=== PATIENT | male | born 1955 | race Caucasian/White ===

== ENCOUNTER → 2018-02-01 08:09 | Outpatient (CLI) | payer OTHER, SELFPAY ==
[2018-02-01 12:18] LABS: Anion Gap 8 (5-15); BUN 14 mg/dL (7-18); BUN/Creat Ratio 13.7 RATIO (10-20); Calcium,Total 8.3 mg/dL (8.5-10.1); Chloride 110 mmol/L (98-107); Cholesterol 178 mg/dL (200); Creatinine, Serum 1.02 mg/dL (0.70-1.30); EST Glomerular Filtration Rate 78 mL/min (>60); Est Glom Filt Rate - Afr Amer 95 mL/min (>60); Glucose 94 mg/dL (74-106); High Density Lipoprotein 42 mg/dL; PSA,Total - Annual Screen 2.13 ng/mL (0.00-4.00); Potassium 4.3 mmol/L (3.5-5.1); Sodium Level 142 mmol/L (136-145); Triglycerides 81 mg/dL; Very Low Density Lipoprotein 16 mg/dL (5-40)
== END ==
PROVIDERS: Family Provider Family Medicine; PCP Family Medicine; Visit Provider Family Medicine
DX: Z00.00 Encounter for general adult medical examination without abnormal findings (principal); M79.89 Other specified soft tissue disorders; Z13.220 Encounter for screening for lipoid disorders; Z12.5 Encounter for screening for malignant neoplasm of prostate
CPT/HCPCS: 36415; 80048; 80061; 84153; G0103

== ENCOUNTER → 2019-05-30 | Outpatient (CLI) | payer OTHER, SELFPAY ==
--- NOTE | 2019-05-30 08:46 | CDU_ITS ---
Reason For Study: carotid stenosis Rt. Velocities/BP Lt. Velocities/BP Prox CCA 69.0/9.0 cm/sec. Prox CCA 95.3/21.6 cm/sec. Mid CCA 58.1/12.0 cm/sec. Mid CCA 84.3/17.9 cm/sec. Dist CCA 53.7/15.3 cm/sec. Dist CCA 59.2/13.1 cm/sec. Prox ICA 58.1/174.5 cm/sec. Prox ICA 47.1/15.3 cm/sec. Mid ICA 57.0/19.7 cm/sec. Mid ICA 65.8/25.2 cm/sec. Dist ICA 71.3/19.7 cm/sec. Dist ICA 69.1/24.1 cm/sec. Rt. ICA/CCA = 71.3/69.0=1.0. Lt. ICA/CCA = 69.1/84.3=0.8. Prox ECA 76.8/7.6 cm/sec. Prox ECA 76.8/10.9 cm/sec. Rt. Vert. 64.7/14.2 cm/sec. Lt. Vert. 39.3/13.7 cm/sec. Right Extracranial There is no significant atherosclerotic plaque noted in the right common carotid artery. There is homogeneous, smooth atherosclerotic plaque noted in the right internal carotid artery. There is intimal thickening but no significant atherosclerotic plaque noted in the right external carotid artery. Antegrade flow is noted in the right vertebral artery. There is heterogeneous, smooth atherosclerotic plaque noted in the right bulb. Left Extracranial There is heterogeneous, irregular atherosclerotic plaque noted in the left common carotid artery. There is homogeneous, smooth atherosclerotic plaque noted in the left internal carotid artery. There is homogeneous, smooth atherosclerotic plaque noted in the left external carotid artery. Antegrade flow is noted in the left vertebral artery. There is heterogeneous, smooth atherosclerotic plaque noted in the left bulb. Procedure Carotid Duplex [id number]. The exam was diagnostic. Exam performed in department. Interpretation Summary Mild (<50%) stenosis right extracranial internal carotid. Mild (<50%) stenosis left extracranial internal carotid. Flow within the vertebral arteries is antegrade bilaterally. Heterogeneous, smooth atherosclerotic plaque is noted in the carotid bulbs bilaterally, which does not appear to be hemodynamically significant. Ordering Physician: Reza Nieto Referring Physician: Reza Nieto Performed By: Chloe Denton RDCS, RVT
== END | disposition home or self-care (01) ==
LOC: CVS 08:43
PROVIDERS: Family Provider Family Medicine; PCP Family Medicine; Referring Provider Family Medicine; Visit Provider Family Medicine
DX: I65.29 Occlusion and stenosis of unspecified carotid artery (principal)
CPT/HCPCS: 93880

== ENCOUNTER → 2019-06-05 | Outpatient (CLI) | payer OTHER, SELFPAY ==
[2019-06-05 12:42] VITALS: BMI 34.0
--- NOTE | 2019-06-05 13:08 | CT_ITS ---
STUDY: LOW DOSE CT LUNG CANCER SCREENING REASON FOR EXAM: Male, 64 years old. 30 pack-year history of smoking. RADIATION DOSAGE (If Supplied By Facility): CTDIvol = ( 4.02 ) mGy, DLP = ( 139.44 ) mGycm TECHNIQUE: No contrast was administered. Low dose technique was utilized (average mAS-38 and kVp 120). 1.25 mm axial source images with a slice interval of 1.25-mm were reconstructed in lung windows. 2.5 mm axial source images with a slice interval of 2.5-mm were reconstructed in lung windows. 5.0 mm axial source images with a slice interval of 5.0-mm were reconstructed in soft tissue windows. Nodule measured using lung windows on PACS and/or independent workstation with automated measurement of minimum and maximum diameter. Nodule measurement reported as average diameter rounded to the nearest whole number. Growth is defined as an increase ins size of greater than 1.5 mm. COMPARISON: None. NODULES: There is a 1.1 cm calcified granuloma in the anterior lateral aspect of the right middle lobe. A 3 mm calcified granuloma is also seen in the posterior medial aspect of the right middle lobe. A 2.5 mm calcified granuloma is also seen in the posterior segment of the right lower Emphysema: Mild scarring at the lung apices. Mild scarring in the posterior medial segments of both lower lobes with minimal subpleural blebs. Endobronchial lesion: None. Aorta: Atherosclerotic calcific plaque at the level of the aortic arch. Coronary arteries: Coronary artery calcification. Heart: Unremarkable. Pulmonary artery: Unremarkable. Mediastinal nodes: Small benign-appearing mediastinal lymph nodes. Other chest and abdominal findings: CT/Low Dose CT Lung Screening IMPRESSION: Lung-RADS category 2 - Continue annual screening with LDCT in 12 months. IMPORTANT NOTES FOR USE: ACR Lung-RADS Version 1.0 Assessment Categories Release Date: December 31, 2013 Category: Coded 0-4 bases on nodule(s) with highest degree of suspicion. Negative screen is defined as categories 1 and 2; a positive screen is defined as categories 3 and 4. Category 3 and 4A nodules that are unchanged on interval CT should be coded as category 2, and individuals returned to screening in 12 months. Category 4X: Category 3 or 4 nodules with additional imaging findings that increase the suspicion of lung cancer, such as spiculation, GGN that doubles in size in 1 year, enlarged lymph notes, etc. Category Modifiers: S (significant finding unrelated to lung cancer) and C (prior history of treated lung cancer) may be added to the 0-4 Lung-RADS 1.1 cm calcified granuloma in the anterior lateral aspect of the right middle lobe. A 3 mm calcified granuloma is also seen in the posterior medial aspect of the right middle lobe. A 2.5 mm calcified granuloma is also seen in the posterior segment of the right lower Electronically Signed: Trent Webster, at 14:04 EDT , Service support ,
== END | disposition home or self-care (01) ==
LOC: CT 13:07
PROVIDERS: Family Provider Family Medicine; PCP Family Medicine; Referring Provider Nurse Practitioner Family; Visit Provider Nurse Practitioner Family
DX: Z87.891 Personal history of nicotine dependence (principal); Z12.2 Encounter for screening for malignant neoplasm of respiratory organs
CPT/HCPCS: G0297

== ENCOUNTER → 2020-04-24 12:47 | Outpatient (CLI) | payer MEDICARE, BC, SELFPAY ==
[2019-06-05 12:42] VITALS: BMI 34.0
--- NOTE | 2020-04-24 12:54 | VDLE_ITS ---
Reason For Study: Increased swelling RIGHT LEFT CFV is compressible, spontaneous, phasic, CFV is compressible, spontaneous, phasic, competent and demonstrates normal competent, and demonstrates normal augmentation. augmentation. Procedure FV is compressible, spontaneous, phasic, Exam performed in department. competent and demonstrates normal A preliminary report was called and/or faxed augmentation. to [facility]. POP V is compressible, spontaneous, phasic, competent and demonstrates normal augmentation. T/P Trunk is compressible. PTV is compressible. LT PerV is compressible. Superficial vein thrombosis is noted in the left GSV from distal thigh to ankle. Thrombus filled varicose veins noted in the prox-mid calf. Nonvascularized structure noted in the left popliteal fossa measuring approximently 2.89 x 2.17 x 5.50 cm. Interpretation Summary Deep veins of the left lower extremity are patent and compressible segmentally. There is no evidence of left lower extremity deep vein thrombosis. Valvular competence appears intact within the proximal deep venous system on the left . Acute superficial thrombophlebitis is noted in the left great saphenous vein from the distal thigh to the ankle. Acute superficial thrombophlebitis is noted involving superficial varicosities in the left proximal and mid-calf. A non-vascular, hypoechoic structure is noted in the left popliteal space, measuring 2.89 cm x 2.17 cm x 5.50 cm. This probably represents a popliteal cyst. Clinical correlation is advised. Ordering Physician: Luci Maza Referring Physician: Reza Nieto Performed By: Olinda Vazquez RVT
== END ==
PROVIDERS: PCP Family Medicine; Referring Provider Family Medicine; Visit Provider Family Medicine
DX: M79.89 Other specified soft tissue disorders (principal); Q82.0 Hereditary lymphedema
CPT/HCPCS: 93971

== ENCOUNTER → 2020-07-01 15:00 | Outpatient (CLI) | payer MEDICARE, BC, SELFPAY ==
[2019-06-05 12:42] VITALS: BMI 34.0
--- NOTE | 2020-07-01 15:00 | CT_ITS ---
STUDY: CT CHEST WITHOUT CONTRAST- LOW DOSE SCREENING PROTOCOL REASON FOR EXAM: Male, 65 years old. Former smoker. 30 pack per year history. No current symptoms of lung cancer or pulmonary infection. Shared decision-making with referring PCP documented in patient''s record. RADIATION DOSAGE (If Supplied By Facility): CTDIvol = ( 3.40 ) mGy, DLP = ( 118.68 ) mGycm TECHNIQUE: Low dose screening CT examination performed from the base of the neck to the upper abdomen. Sagittal and coronal reformatted images performed. Sagittal and coronal MIP images provided. The measurements provided are average, rounded measurements per ACR guidelines. COMPARISON: 06/05/2019 FINDINGS: Mild emphysematous changes. No change in the 6 mm noncalcified nodule in the posterior medial right upper lobe the lungs on image 84 and follow-up CT the chest is recommended in 6 months not mentioned stability. There is also no change in the 4 mm noncalcified nodule in the anterior right middle lobe the lungs on image 142 consistent with a noncalcified granuloma or scar. There is no demonstrated pleural abnormality. Normal heart and pericardium. There are calcifications of the coronary arteries. Normal mediastinum. Normal hilar regions. Normal unenhanced pulmonary arteries. Normal aorta arch and descending thoracic aorta. Normal osseous structures. There is no demonstrated abnormality of the visualized upper abdomen. CT/Low Dose CT Lung Screening IMPRESSION: 1. 6 mm noncalcified right upper lobe nodule and follow-up CT is recommended in 6 months document stability.. 2. Incidental findings include mild emphysema and calcified coronary plaque.. ASSESSMENT CATEGORY: LungRADS 3 - Probably Benign. Recommend follow up with LDCT in 6 months, per established ACR guidelines. Electronically Signed: Kehinde Hess MD at 15:37 EDT Tel , Service support ,
== END ==
PROVIDERS: PCP Family Medicine; Referring Provider Nurse Practitioner Family; Visit Provider Nurse Practitioner Family
DX: Z12.2 Encounter for screening for malignant neoplasm of respiratory organs (principal); Z87.891 Personal history of nicotine dependence
CPT/HCPCS: G0297

== ENCOUNTER → 2021-01-13 14:02 | Outpatient (CLI) | payer MEDICARE, BC, SELFPAY ==
[2019-06-05 12:42] VITALS: BMI 34.0
[2021-01-13 13:43] VITALS: BMI 35.2
--- NOTE | 2021-01-13 14:04 | CT_ITS ---
STUDY: CT CHEST WITHOUT CONTRAST REASON FOR EXAM: Male, 65 years old. Lung nodule -- Lung cancer screening, LungRADS category 3 RADIATION DOSAGE (If Supplied By Facility): CTDIvol = ( 3.02 ) mGy, DLP = ( 113.62 ) mGycm TECHNIQUE: Transaxial imaging was performed without the administration of intravenous contrast material. Multiplanar coronal and sagittal images were reformatted. Individualized dose optimization techniques were used for this CT. COMPARISON: Comparison is made with prior study dated 07/01/2020. FINDINGS: Mild degree of emphysematous changes. Stable 1 cm calcified granuloma in the anterior lateral aspect of the right middle lobe. Stable 5 mm noncalcified nodule in the posterior medial segment of the right upper lobe as seen on axial image #95. There is no demonstrated pleural abnormality. There are calcifications of the coronary arteries. Normal mediastinum. Normal hilar regions. Normal unenhanced pulmonary arteries. Normal aorta arch and descending thoracic aorta. There are degenerative changes of the thoracic spine. There is no demonstrated abnormality of the visualized upper abdomen. CT/Chest without Contrast IMPRESSION: Stable examination. Electronically Signed: Trent Webster MD at 15:25 EDT , Service support ,
== END ==
PROVIDERS: PCP Family Medicine; Referring Provider Nurse Practitioner Family; Visit Provider Nurse Practitioner Family
DX: R91.1 Solitary pulmonary nodule (principal)
CPT/HCPCS: 71250

== ENCOUNTER → 2021-06-22 06:43 | Outpatient (CLI) | payer MEDICARE, BC, SELFPAY ==
--- NOTE | 2021-06-22 06:48 | ECHOD_ITS ---
Reason For Study: Chest Pain Procedure This was a 2D Doppler, Color Flow transthoracic echocardiogram. Exam performed in department. Left Ventricle Normal LV size. Mild concentric left ventricular hypertrophy. Left ventricular systolic function is normal. The estimated ejection fraction is 60 %. Stage 1 diastolic dysfunction. No regional wall motion abnormalities noted. Right Ventricle Normal RV size. Normal systolic function. Atria Normal left atrium. Normal right atrium. Mitral Valve Normal mitral valve. Tricuspid Valve Normal tricuspid valve. Mild tricuspid valve insufficiency. Pulmonary artery systolic pressure is 30 mmHg. Aortic Valve Normal aortic valve. Trisinus/trileaflet aortic valve. Pulmonic Valve Normal pulmonic valve. Great Vessels Normal aortic root. The pulmonary artery is normal size. Normal inferior vena cava. Pericardium/Pleural No pericardial effusion. MMode/2D Measurements & Calculations LVIDd: 4.9 cm IVSd: 1.3 cm Ao root diam: 2.6 cm LVIDs: 3.6 cm LVPWd: 1.3 cm RVDd: 4.0 cm FS: 27.3 % LAV(MOD-bp): 51.0 ml LVAd ap4: 33.3 cm2 SV(MOD-sp4): 53.1 ml LAV(MOD-bp) Indexed: 24.0 ml/m2 LVLd ap4: 9.4 cm LAV(MOD-sp2): 63.7 ml EDV(MOD-sp4): 97.2 ml LAV(MOD-sp4): 33.2 ml EDV(sp4-el): 100.1 ml LVAs ap4: 21.0 cm2 LVLs ap4: 8.4 cm ESV(MOD-sp4): 44.2 ml ESV(sp4-el): 44.6 ml EF(MOD-sp4): 54.6 % EF(sp4-el): 55.5 % SV(sp4-el): 55.5 ml LA A4 area: 13.2 cm2 LA dimension(2D): 4.4 cm RA A4 area: 14.1 cm2 Doppler Measurements & Calculations MV E max chad: 59.2 cm/sec Lat Peak E' Chad: 7.7 cm/sec Med Peak E' Chad: 6.3 cm/sec MV A max chad: 84.7 cm/sec E/E' lat: 7.7 E/E' med: 9.5 MV E/A: 0.70 Ao V2 max: 113.9 cm/sec LV V1 max: 83.2 cm/sec PA V2 max: 121.3 cm/sec Ao max P.2 mmHg LV V1 max P.8 mmHg Ao V2 mean: 77.3 cm/sec Ao mean P.7 mmHg Ao V2 VTI: 27.1 cm PI end-d chad: 95.3 cm/sec TR max chad: 256.7 cm/sec TR max P.4 mmHg ECHO/Echo Complete Interpretation Summary Normal LV size. Left ventricular systolic function is normal. The estimated ejection fraction is 60 %. Mild concentric left ventricular hypertrophy. Pulmonary artery systolic pressure is 30 mmHg. Stage 1 diastolic dysfunction. Ordering Physician: Luci Maza Referring Physician: Reza Nieto Performed By: Ruth Fish, JOSAFAT, RVT
--- NOTE | 2021-06-22 11:31 | STRESSREP ---
Stress Test Report Exercise and pharmacologic myocardial perfusion stress test. Reason for evaluation evaluation of chest pain and shortness of breath. Stress protocol: Resting EKG demonstrates sinus bradycardia with a rate of 55 bpm T wave inversions are noted inferior laterally. Resting blood pressure is 150/78 mmHg. The patient initially exercised according to the regular Bernardo protocol for total duration of 4 minutes and 20 seconds. The maximum heart rate attained was 150 bpm which was 97% of max infected heart rate the maximum workload was 7 metabolic equivalents. The patient developed a rate dependent bundle branch block with EKG changes noted. Patient also developed mild shortness of breath and moderately severe shortness of breath necessitating discontinuation of the test. The peak blood pressure was 200/70 mmHg suggesting a hypertensive response to exercise. No obvious clinical angina was noted. Myocardial perfusion protocol. 14.5 mCi of technetium 99m sestamibi was injected at rest. The patient exercised according to regular Bernardo protocol and at peak exercise 44.1 mCi of technetium 99m sestamibi was injected. Stress images were obtained stress and rest images were reconstructed and compared in the short axis vertical long and horizontal long axis. Gated images were also obtained. Perfusion SPECT analysis: Review of the stress images demonstrate normal uptake of tracer noted in the septum anterior wall and lateral wall. The stress images demonstrate mildly reduced perfusion noted in the mid inferior wall. The resting images demonstrate mild improvement in the mid inferior wall with normal perfusion noted in the other [place]. Mild amount of inferior ischemia cannot be completely excluded diaphragmatic attenuation can also not be completely excluded. Gated SPECT analysis: The gated ejection fraction is 46%. Conclusion: Exercise myocardial perfusion stress test with possible mild inferior ischemia. Mild cardiomyopathy present. Rate dependent bundle branch block present.
== END ==
PROVIDERS: PCP Family Medicine; Referring Provider Family Medicine; Visit Provider Family Medicine
DX: R07.9 Chest pain, unspecified (principal)
CPT/HCPCS: 78452; 93017; 93306; A9500; A4216; J2785

== ENCOUNTER 2021-10-13 13:42 | Outpatient (CLI) | payer MEDICARE, BC, SELFPAY ==
--- NOTE | 2021-10-13 13:44 | CT_ITS ---
STUDY: LOW DOSE CT LUNG CANCER SCREENING REASON FOR EXAM: Male, 66 years old. Lung cancer screening -- and gt;30 pk yr hx;former smoker;asymptomatic RADIATION DOSAGE (If Supplied By Facility): CTDIvol = ( 3.18 ) mGy, DLP = ( 114.77 ) mGycm TECHNIQUE: No contrast was administered. Low dose technique was utilized (average mAS-38 and kVp 120). 1.25 mm axial source images with a slice interval of 1.25-mm were reconstructed in lung windows. 2.5 mm axial source images with a slice interval of 2.5-mm were reconstructed in lung windows. 5.0 mm axial source images with a slice interval of 5.0-mm were reconstructed in soft tissue windows. Nodule measured using lung windows on PACS and/or independent workstation with automated measurement of minimum and maximum diameter. Nodule measurement reported as average diameter rounded to the nearest whole number. Growth is defined as an increase ins size of greater than 1.5 mm. COMPARISON: Comparison is made with prior examination of 01/13/2021. NODULES: Stable 9 mm calcified granuloma in the anterior lateral aspect of the right upper lobe. Stable 5 mm noncalcified nodule in the posterior medial segment of the right upper lobe as seen on axial image #91. Emphysema: Stable scarring along the posterior medial aspect of the right lower lobe. Endobronchial lesion: None Aorta: Mild degree of atherosclerotic calcification. Coronary arteries: Coronary artery calcification. Heart: Unremarkable Pulmonary artery: Unremarkable Mediastinal nodes: Unremarkable Other chest and abdominal findings: CT/Low Dose CT Lung Screening IMPRESSION: Lung-RADS category 2 - Continue annual screening with LDCT in 12 months. IMPORTANT NOTES FOR USE: ACR Lung-RADS Version 1.1 Assessment Categories Release Date: 2018 Category: Coded 0-4 bases on nodule(s) with highest degree of suspicion. Negative screen is defined as categories 1 and 2; a positive screen is defined as categories 3 and 4. Category 3 and 4A nodules that are unchanged on interval CT should be coded as category 2, and individuals returned to screening in 12 months. Category 4X: Category 3 or 4 nodules with additional imaging findings that increase the suspicion of lung cancer, such as spiculation, GGN that doubles in size in 1 year, enlarged lymph notes, etc. Category Modifiers: S (significant finding unrelated to lung cancer) Electronically Signed: Trent Webster MD at 14:35 EST ,
== END 2021-10-13 23:59 | disposition home or self-care (01) ==
PROVIDERS: PCP Family Medicine; Referring Provider Nurse Practitioner Family; Visit Provider Nurse Practitioner Family
DX: Z87.891 Personal history of nicotine dependence (principal); Z08 Encounter for follow-up examination after completed treatment for malignant neoplasm; Z85.118 Personal history of other malignant neoplasm of bronchus and lung
CPT/HCPCS: 71271

== ENCOUNTER → 2022-02-26 | Outpatient (CLI) | payer MEDICARE, BC, SELFPAY ==
--- NOTE | 2022-02-26 13:10 | CR.HP_ITS ---
CR - History & Physical - General Arrival date:: 02/26/22 Arrival time:: 13:10 Date of Referral:: 02/15/22 Date of CR Evaluation:: 02/26/22 Referring Physician: Dr. Jennings Primary Diagnosis: CABG - History of Present Cardiac Event Onset Date: Enter Onset Date of cardiac illnesses in Comment field below Coronary Artery Bypass Graft:: Yes - 12/07/2021 - Sleep Disorder Evaluation Hx of Sleep Apnea: No Do you snore loudly (louder than talking or can be heard through closed doors)?: No Do you often feel tired/ fatigued/ sleepy during daytime?: No Has anyone observed you stop breathing during sleep?: No History of Hypertension (for STOP score): Yes STOP Results: Negative - Medications Home Medications: Ambulatory Orders Medication Instructions Recorded aspirin 81 mg tablet,delayed 81 mg PO DAILY 10/13/21 release (Adult Aspirin Regimen) atorvastatin 20 mg tablet 20 mg PO QHS 10/13/21 carvedilol 3.125 mg tablet 3.125 mg PO BID 10/13/21 isosorbide mononitrate 30 mg 30 mg PO DAILY 10/13/21 tablet,extended release 24 hr nitroglycerin 0.4 mg sublingual 0.4 mg sublingual Q5M PRN 10/13/21 tablet - Allergies Allergies/Adverse Reactions: Allergies No Known Allergies Allergy (Verified 10/13/21 13:12) Advanced Directives - Advanced Directives Power of Maintenance Of Way Superintendent: Yes Living Will: Yes Advance Directives Information Provided: Yes Advance Directives on File: Yes DNR Order?:: No Past Medical History - Covid-19 Screening Fever: No Unexplained muscle aches: No Current respiratory symptoms: No Upper respiratory infections symptoms: No Gastro-intestinal symptoms: No Srp-Ibjw-Erxtnx symptoms: No Has tested positive for COVID-19 in last 30 days: No Had contact w/person w/symptoms or Covid-19 (+) last 14 days: No Has High Risk Exposures ID'd by Health dept/Inf Control team: No 65 years or older:: Yes Lives in Assisted Living facility:: No Has a chronic lung disease or moderate to severe asthma:: No Has a serious heart condition:: Yes Immunocompromised:: No Severely obese (Body Mass Index of 40 or higher):: No Diabetic:: No Has chronic kidney disease undergoing dialysis:: No Has liver disease:: No - Past Medical Illness Medical History: Past Medical History (Last Updated 10/13/21 @ 13:17 by Gay Miller) Actinic keratosis L57.0 Basal cell carcinoma (BCC) of left forehead C44.319 Bursitis M71.9 Carotid stenosis, left I65.22 Encounter for follow-up surveillance of lung cancer Z08, Z85.118 Foot swelling M79.89 Former smoker Z87.891 History of tobacco use Z87.891 Nodule of right lung R91.1 Shortness of breath R06.02 referred to corrosion engineer 06/2021 - Past Surgical History Surgical History: Past Surgical History (Last Reviewed 10/13/21 @ 13:17 by Gay Miller) History of basal cell carcinoma excision Z98.890, Z85.828 L forehead - Family History Summary Family History: Family History (Last Reviewed 10/13/21 @ 13:17 by Gay Miller) Mother Heart disease had heart valve replacement Father Smoker in home Social History - Smoking History Smoking Status: Former smoker Years Smokin Packs Smoked per Day: 1 Hx Smoking Cessation Date: 09/05/04 Hx Tobacco Use: Yes - Alcohol Use Alcohol Usage: Yes - socially - Substance Abuse Hx Substance Use: No - Occupation Occupation (List type of work in comments):: Employed Hours worked per day:: 4 - Hobbies, Recreation, Social Activities Hobbies: Other - golf Recreational Activities: I am able to engage in most, but not all activities Social Environment - Status Marital Status: - Current Living Arrangements Living Environment:: Spouse - Children How many children do you have?: 3 Do any of your children live nearby?: No - Safety Do you feel safe in your surroundings?: Yes - Assistance Do you need any assistance at home?: no Review of Systems - Review of Systems Hints: Right click = Denies (Slash). Left click = Reports (Te-Moak) Review of Present Symptoms: Reports: Dizziness/Lightheadedness, Fatigue, Appetite - Normal, Appetite - Special Diet, Sleep - Normal. Denies: Shortness of Breath at Rest, Shortness of Breath with Exertion, PVD, Operative Discomfort, Angina, Wound Healing, Heart Arrhythmia/Irregularities, Sexual Changes - Pain Is Patient Pain Free?: Yes Risk Factor Assessment - Vital Signs Pulse Ox: 97 - Pulse Pulse Rate: 62 Pulse Rhythm: Regular - Hypertension Blood Pressure Sitting - Right Arm: 102/70 - Obesity Height: 5 ft 9 in Weight:: 92.6 kg Weight in Pounds: 204.1 lbs Body Mass Index (BMI): 30.1 Nutritional Referral for Obesity: No - Physical Inactivity Physical Inactivity: Reg Exercise 30 min/day, Recreational activity - Risk Stratification Risk Guidelines: Moderate Risk: Risk Factor for Smoking, Risk Factor for Dyslipidemia, Risk Factor for Diabetes, Risk Factor for Obesity, Risk Factor for Hypertension, Risk Factor for Sedentary Lifestyle, Risk Factor for Depression - Family History Family History: Family History (Last Reviewed 10/13/21 @ 13:17 by Gay Miller) Mother Heart disease Father Smoker in home Motivation - Motivation to Participate On a scale of 1 to 10, how prepared are you to commit to attending program?: 10 What do you see as barriers to successfully being able to complete the program?: work What do you see as the benefits of succesfully completing the program? In other words, what do you hope to get out of participating in the program?: improved health and knowledge Are there issues you are dealing with that will interfere with completing the program?: no Do you have a spouse or signficant other, family or friends who will help support you to complete the program?: yes
[2022-02-26 14:17] VITALS: BP 102/70; PULSE 62; O2SAT 97; BMI 30.1
--- NOTE | 2022-02-26 14:18 | CR.ITP_ITS ---
Diagnosis - General Information Admitting Diagnosis: CABG - Education/Goals Cardiac Rehabilitation Goals: 1. Maintain the individual as the primary focus of care. 2. To improve the patient's quality of life. 3. Identification of cardiac risk factors and provide cardiac risk factor management. 4. Enhance the psychosocial status of the patient. 5. Reconditioning enough to allow the patient to resume customary activities. 6. Control symptoms of cardiac disease Personal Goals: Initial Assessment: Improve energy level, Improve knowledge of cardiac disease, Improve muscle strength and endurance Scale for measuring improvement of personal goals: Enter appropriate number in Comments. 2 = Unchanged. 3 = Slightly Better. 4 = Moderate Improvement. 5 = Met my Goal Exercise - Initial Assessment - Visit Date of Eval: 02/26/22 - initial eval Mets: Pre-: >3 METS for 30 minutes by discharge, >5 METS for 30 minutes by discharge, >7 METS for 30 minutes by discharge, Unable to meet goal due to: (see comment below) - Physician Prescribed Exercise Modalities: Treadmill, Airdyne, NuStep, SciFit, Lateral [place] Frequency: 2x/week for 18 weeks [36 sessions] Intensity: 60-80% of age predicted maximum heart rate reserve Current METSs:: 3 Target Heart Rate:: 99-122 Resting Blood Pressure: 102/70 EKG Type: SR - Outcomes & Goals Goals:: Verbalizes understanding of THR, RPE & goal METS by session 6, Documents in home exercise log/reports 30 min aerobic 5 day/wk by DC, Demonstrates accurate pulse taking by DC, Other additional outcome/goals: see below - Intervention & Plan Exercise Program Goals: Instruct on personal THR & RPE, Instruct on MET level & personal MET goal, Show patient to take own pulse /validate performance until accurate, Instruct on home exercise, Other additional plan/int - Physical Activity Home Exercise Physical Activity - Home Exercise: Safe Exercise, Warm-up, Self-monitoring, Cool-Down, Home Exercise > 30 min Daily, Sitting Time <3 hours/daily - Outcomes & Goals Outcomes/Goals: Demonstrates correct Warm-up/exercise Cool-Down (S3) if = 2.5 METs, Verbalizes symptoms of exercise intolerance by Session 3 (S3), Demonstrate safe equipment use (S3) & follows exercise prescrition (6), Other: See below - Intervention & Plan Plan/Intervention: Instruct warm-up & cool-down if exercising at > 2 METs, Instruct on symptoms of exercise intolerance & actions to take, Instruct & monitor on saf, Assess intial functional capacity & safety risk, Other See below Nutrition - Initial Assessment - Program Goals Nutrition Program Goals: LDL <100 optimal. 100 - 129 Near optimal. 130 - 159 Borderline High. 160 - 189 High. Total Cholesterol <200 desirable. 200 - 239 Borderline High. >/= 240 High. HDL < 40 Low >/=60 High. Triglycerides <150 desirable. <199 optimal. VlDL 5 - 40. HgbA1C <7%. BMI <25 Patient has diagnosis of Hyperlipidemia (ICD E78)?: Yes - Visit Date of Assessment:: 02/26/22 - initial eval - Cholesterol/Lipids Determine presence & major risk factors that modify LDL goal: Cigarette smoking, Hypertension or hypertensive medication, Low HDL cholesterol <40 mg/dL*, Family history of premature CHD in Male < 55 years: female <65 yearsFa, Age men > 45 years; women >/= 55 years Outcomes/Goals: Pt IDs own risk factors & lifestyle modifications by Session 10, Verbalizes symptoms of angina & response by session 3., Pt independently manages, Other Additional Outcomes/Goals: Intervention/Plan: Advocate for lipid panel cholesterol medication if applicable, Instruct on personal lipid levels & lipid goals/NCEP guidelines, Instruct on cholesterol, Other additional plan/int Referral to dietitian:: No - declines - Diabetes (Other Core Measures) Diabetes Type: Not Applicable - Weight Mgt (Other Care) Height: 5 ft 9.02 in Weight:: 92.6 kg BMI: 30.1 Diagnosis Overweight/Obesity BMI> 30% ICD-10 E66: No Diagnosis High BMI/Morbid Obesity BMI> 35% ICD-10 Z68: No Outcomes/Goals: Pt sets, maintains & shows weight loss goal & trend during rehab, Other additional outcomes/goals Intervention/Plan: Instruct on ideal BMI & set weight loss goal w/patient, Assist pt to ID & incorporate diet changes for weight loss by S9, Refer to Structured Weight Loss program as appropriate, Encourage goal of using 250- 300dcal per session for weight loss, Other additional plan/interventions - Healthy Eating Habits Will attend diet classes:: Yes Outcomes/Goals:: Consume diet rich in vegs,fruits,whole grain/high fiber,fish,lean meat, Limit sat/trans fats,cholesterol & added salts & sugars, Other additional outcome/goals: Intervention/Plan:: Assess current eating habits, Other Additional plan/interventions - Education Gave educational materials for:: Signs & symptoms of hypoglycemia, Signs & symptoms of hyperglycemia, Relate diabetes to coronary artery disease, Healthy eating Nutrition - 30-Day Assessment Nutrition - 60-Day Assessment Nutrition - 90-Day Assessment Nutrition - Final Assessment Medical - Initial Assessment - Visit Date of Eval: 02/26/22 - initial eval - Medication Compliance Preventative Medication(s):: Aspirin, STEWART inhibitor, Statin/lipid, Beta mary H/O mental health issues: depression, anxiety, or addiction?: No Doesn?t believe in the benefits of treatment?: No Believes medications are unnecessary or harmful?: No Has a concern about medication side effects?: No Expresses concern over the cost of medications?: No Outcomes/Goals: Verbalizes medications,desired effect & common side effects @ DC, Pt self-reports following medication regimen, Keeps card in wallet w/medications listed by DC, Other additional outcome/goals: Interventions/plans: Instruct on medication effects & side effects, Review medication list w/patient every two weeks, Instruct importance of taking meds as ordered & assist problem solving, Other additional - Tobacco Use Tobacco Use: Non-smoker - Hypertension Hypertension Diagnosis:: Hypertension ICD-10 I10 Resting Blood Pressure:: 102/70 [place] [employer] Hypertension Guidelines: [place] [employer] Hypertension Guidelines. Normal BP Less than 120/80. Elevated BP 120/80. Hypertension Stage 1: BP 130-139/80-89. Hypertesnion Stage 2: BP 140 or higher/90 or higher. Hypertension Crisis: BP higher than 180/120 Outcomes/Goals: Able to verbalize/achieve optimal blood pressure <130/80, Incorporates diet changes & exercise for blood pressure control by DC, Other additional outcomes/goals Interventions/plan: Instruct on optimal blood pressure, hypertension & medications, Instruct on effects of sodium, alcohol, stress, exercise &hypertension, Other additional plan/interventions - Tobacco Cessation Referral Smoking Cessation Referral:: No Individual Education/Counseling:: No Education Schedule Given:: Yes Medical- 30-Day Assessment Medical- 60-Day Assessment Medical- 90-Day Assessment Medical - Final Assessment Psychosocial - Initial Assess - VIsit Date of Eval: 02/26/22 - initial eval History of previous Mental disease:: No - Outcomes/Goals: See list Psychosocial Outcomes/Goals:: ID's personal stressors & 2 strategies to manage stress by discharge, Other Additional outcome/goals: - Intervention/Plan: See List Interventions/Plan:: Assess stressors,coping strategies & signs of derpression on admission, Instruct/assist pt to develop coping & personal stress Mgt strategies, Refer to Behavioral Health if appropriate, Refer to Physician if appropriate, Instruct patient to recognize signs & symptoms of depression, Instruct patient to recog, Other additional plan/intervention Psychosocial - 30-Day Assess Psychosocial - 60-Day Assess Psychosocial - 90-Day Assess Psychosocial - Final Assessmen Patient Health Questionnaire Initial Assessment 1. Little interest or pleasure in doing things: Not at all 2. Feeling down, depressed, or hopeless: Not at all 3. Trouble falling or staying asleep, or sleeping too much: Not at all 4. Feeling tired or having little energy: Not at all 5. Poor appetite or overeating: Not at all 6. Feeling bad about yourself -- or that you are a failure or have let yourself or your family down: Not at all 7. Trouble concentrating on things, such as reading the newspaper or watching television: Not at all 8. Moving or speaking so slowly that other people could have noticed. Or the opposite - being so fidgety or restless that you have been moving around a lot more than usual: Not at all 9. Thoughts that you would be better off , or of hurting yourself in some way: Not at all How difficult have these problems made it for you to do your work, take care of things at home, or get along with other people?: Not difficult at all Total Score: 0 [place]-Q SV Test - Statements CAD is a disease of the arteries in the heart: False Examples of risk factors for heart disease: True Angina is chest pain or discomfort: I Don't Know The benefits of resistance training include: True Eating more meat and dairy products: False Anti-platelet medications such as aspirin are important: I Don't Know The only effective way to manage stress: False An exercise warm-up slowly increases heart rate: I Don't Know Prepared, processed foods usually have high sodium: True Depression is common after a heart attack: True The statin medications lower cholesterol: True To control blood pressure, lower the amount of sodium: True If someone gets chest discomfort during walking: False Transfats are partially hydrogenated vegetable oils: True Sleep apnea that is not treated increases the risk: I Don't Know To control cholesterol, one should become a vegetarian: False Someone knows if he/she is exercising at the right level: I Don't Know Diabetes cannot be prevented with exercise & health eating: I Don't Know Stress is a large risk for heart attack: True A diet that can help lower blood pressure is rich in: True - Total Score Total Correct Responses: 14 Self-Efficacy Initial Assessment We would like to know how confident you are in doing certain activities. Please select your confidence level for:: Select your confidence level for the following using the scale 1-10 where 1 is not at all confident and 10 is totally confident. Your score is the average of all 6 responses. Fatigue: How confident are you that you can keep the fatigue caused by your disease from interfering with the things you want to do? Select Number: 10 Physical Discomfort or Pain: How confident are you that you can keep the physical discomfort or pain of your disease from interfering with the things you want to do? Select Number: 8 Emotional Distress: How confident are you that you can keep the emotional distress caused by your disease from interfering with the things you want to do? Select Number: 10 Other Symptoms or Health Problems: How confident are you that you can keep other symptoms or health problems from interfering with the things you want to do? Select Number: 10 Different Tasks and Activities: How confident are you that you can do the different tasks and activities needed to manage your health condition so as to reduce your need to see a doctor? Select Number: 10 Medication: How confident are you that you can do things other than just taking medication to reduce how much your illness affects your everyday life? Select Number: 10 Total Score:: 9 Nutrition Survey - Nutrition Survey Initial Have you lost >10 lbs over the past 2 months without trying?: Yes Are you following a special diet at home for diabetes, low fat, or low salt?: No Are you interested in meeting with a dietitian for help understanding your diet?: No Do you eat less than 3 meals a day?: Yes Do you eat fatty meats (bradley, sausage, ribs, etc), fried foods, desserts, large amounts of salad dressings, margarine, butter, or cheese most days?: No Do you have food allergies? [Enter types in comment field]: No Do you eat in restaurants more than 3 times a week?: No Do you season food with salt, seasoning salt, or garlic salt?: No Do you used canned, boxed, frozen meals, or soups, seasoning packets?: No Total Score:: 2
[2022-02-26 14:32] VITALS: BP 102/70; BMI 30.1
== END | disposition home or self-care (01) ==
LOC: CR 13:04
PROVIDERS: PCP Family Medicine
DX: Z00.00 Encounter for general adult medical examination without abnormal findings (principal)

== ENCOUNTER 2022-03-01 08:08 | Outpatient (RCR) | payer MEDICARE, BC, SELFPAY ==
[2022-02-26 14:32] VITALS: BMI 30.1
== END 2022-03-04 23:59 ==
LOC: CR 08:08
PROVIDERS: PCP Family Medicine
DX: Z95.1 Presence of aortocoronary bypass graft (principal)
CPT/HCPCS: 93798

== ENCOUNTER 2022-04-02 08:00 | Outpatient (RCR) | payer MEDICARE, BC, SELFPAY ==
[2022-02-26 14:32] VITALS: BMI 30.1
--- NOTE | 2022-03-29 07:08 | PCM.CR.ITP ---
Diagnosis Exercise - 30-day Assessment - Visit Date of Eval: 03/29/22 Session #:: 8 - Tuesday & Tuesday Only - Physician Prescribed Exercise Modalities: Treadmill, Airdyne, NuStep Frequency: 3x/week for 12 weeks [36 sessions] Intensity: 60-80% of age predicted maximum heart rate reserve Current METSs:: 4.5 Target Heart Rate:: 99-130 Current RPE:: 11-13 Maximum Excercise HR:: 114 Resting Blood Pressure: 108/54 Maximum Exercise Blood Pressure: 134/72 EKG Type: SR to ST w/occasional PVCs inverted T wave. Current Physical Activity or Exercising minutes: 39:12 - Outcomes & Goals Goals:: Verbalizes understanding of THR, RPE & goal METS by session 6, Documents in home exercise log/reports 30 min aerobic 5 day/wk by DC, Demonstrates accurate pulse taking by DC - Intervention & Plan Exercise Program Goals: Instruct on personal THR & RPE, Instruct on MET level & personal MET goal, Show patient to take own pulse /validate performance until accurate, Instruct on home exercise - 30-day Reassessments 30 day Reassessments:: Progressing - Physical Activity Home Exercise Physical Activity - Home Exercise: Safe Exercise, Warm-up, Self-monitoring, Cool-Down, Home Exercise > 30 min Daily, Sitting Time <3 hours/daily - Outcomes & Goals Outcomes/Goals: Demonstrates correct Warm-up/exercise Cool-Down (S3) if = 2.5 METs, Verbalizes symptoms of exercise intolerance by Session 3 (S3), Demonstrate safe equipment use (S3) & follows exercise prescrition (6) - Intervention & Plan Plan/Intervention: Instruct warm-up & cool-down if exercising at > 2 METs, Instruct on symptoms of exercise intolerance & actions to take, Instruct & monitor on saf, Assess intial functional capacity & safety risk - 30-day Reassessments 30 day Reassessments:: Progressing Nutrition - Initial Assessment Nutrition - 30-Day Assessment - Program Goals Nutrition Program Goals: LDL <100 optimal. 100 - 129 Near optimal. 130 - 159 Borderline High. 160 - 189 High. Total Cholesterol <200 desirable. 200 - 239 Borderline High. >/= 240 High. HDL < 40 Low >/=60 High. Triglycerides <150 desirable. <199 optimal. VlDL 5 - 40. HgbA1C <7%. BMI <25 Patient has diagnosis of Hyperlipidemia (ICD E78)?: Yes - Visit Date of Assessment:: 03/29/22 Session #:: 8 - Tuesday & Tuesday only - Cholesterol/Lipids Determine presence & major risk factors that modify LDL goal: Hypertension or hypertensive medication, Age men > 45 years; women >/= 55 years Outcomes/Goals: Pt IDs own risk factors & lifestyle modifications by Session 10, Verbalizes symptoms of angina & response by session 3., Pt independently manages Intervention/Plan: Instruct on personal lipid levels & lipid goals/NCEP guidelines, Instruct on cholesterol Referral to dietitian:: Yes - Medical Nutrition Therapy 30-day Reassessments:: Progressing - Diabetes (Other Core Measures) Diabetes Type: Not Applicable - Weight Mgt (Other Care) Height: 5 ft 9 in Weight:: 201 lb 8 oz BMI: 29.7 Diagnosis Overweight/Obesity BMI> 30% ICD-10 E66: No Diagnosis High BMI/Morbid Obesity BMI> 35% ICD-10 Z68: No Outcomes/Goals: Pt sets, maintains & shows weight loss goal & trend during rehab Intervention/Plan: Instruct on ideal BMI & set weight loss goal w/patient, Assist pt to ID & incorporate diet changes for weight loss by S9 30 day Reassessments:: Progressing - lost 3 pounds since starting CR. - Healthy Eating Habits Will attend diet classes:: Yes Outcomes/Goals:: Consume diet rich in vegs,fruits,whole grain/high fiber,fish,lean meat, Limit sat/trans fats,cholesterol & added salts & sugars Intervention/Plan:: Assess current eating habits 30-day Reassessments:: Progressing - Education Gave educational materials for:: Healthy eating Nutrition - 60-Day Assessment Nutrition - 90-Day Assessment Nutrition - Final Assessment Medical - Initial Assessment Medical- 30-Day Assessment - Visit Date of Eval: 03/29/22 Session #:: 8 - Medication Compliance Preventative Medication(s):: Aspirin, Statin/lipid, Beta mary H/O mental health issues: depression, anxiety, or addiction?: No Doesn?t believe in the benefits of treatment?: No Believes medications are unnecessary or harmful?: No Has a concern about medication side effects?: No Expresses concern over the cost of medications?: No Outcomes/Goals: Verbalizes medications,desired effect & common side effects @ DC, Pt self-reports following medication regimen, Keeps card in wallet w/medications listed by DC Interventions/plans: Instruct on medication effects & side effects, Review medication list w/patient every two weeks, Instruct importance of taking meds as ordered & assist problem solving 30-day Reassessments:: Progressing - Tobacco Use Tobacco Use: Non-smoker - Hypertension Resting Blood Pressure:: 108/54 [place] [employer] Hypertension Guidelines: [place] [employer] Hypertension Guidelines. Normal BP Less than 120/80. Elevated BP 120/80. Hypertension Stage 1: BP 130-139/80-89. Hypertesnion Stage 2: BP 140 or higher/90 or higher. Hypertension Crisis: BP higher than 180/120 Peak Exercise Blood Pressure:: 110/58 Outcomes/Goals: Able to verbalize/achieve optimal blood pressure <130/80, Incorporates diet changes & exercise for blood pressure control by DC Interventions/plan: Instruct on optimal blood pressure, hypertension & medications, Instruct on effects of sodium, alcohol, stress, exercise &hypertension 30 day Reassessments:: Progressing - Tobacco Cessation Referral Smoking Cessation Referral:: No Individual Education/Counseling:: No Education Schedule Given:: Yes Medical- 60-Day Assessment Medical- 90-Day Assessment Medical - Final Assessment Psychosocial - Initial Assess Psychosocial - 30-Day Assess - VIsit Date of Eval: 03/29/22 Session #:: 8 Not Applicable: Yes History of previous Mental disease:: No - Psychosocial Test Tool Used:: PHQ-9 Questionnaire phq-9 Severity: Severity. 1-4 Minimal Depression. 5-9 Mild Depression. 10-14 Moderate Depression. 15-19 Moderately Sever Depression. 20-27 Severe Depression. Rule: - Referral to Behavioral Health PS - Interventions: Yes Attend Stress Management Classes, No Referral to Behavioral Health if PHQ-9 score >9:, No Referral to [facility], No Referral to Physician if PHQ-9 if score is 5-9: - Outcomes/Goals: See list Psychosocial Outcomes/Goals:: ID's personal stressors & 2 strategies to manage stress by discharge - Intervention/Plan: See List Interventions/Plan:: Assess stressors,coping strategies & signs of derpression on admission, Instruct/assist pt to develop coping & personal stress Mgt strategies, Instruct patient to recognize signs & symptoms of depression, Instruct patient to recog - 30-day Reassessments: 30 day Reassessments:: Progressing Psychosocial - 60-Day Assess Psychosocial - 90-Day Assess Psychosocial - Final Assessmen Patient Health Questionnaire 30-Day Re-eval Assessment 1. Little interest or pleasure in doing things: Not at all 2. Feeling down, depressed, or hopeless: Not at all 3. Trouble falling or staying asleep, or sleeping too much: Not at all 4. Feeling tired or having little energy: Not at all 5. Poor appetite or overeating: Not at all 6. Feeling bad about yourself -- or that you are a failure or have let yourself or your family down: Not at all 7. Trouble concentrating on things, such as reading the newspaper or watching television: Not at all 8. Moving or speaking so slowly that other people could have noticed. Or the opposite - being so fidgety or restless that you have been moving around a lot more than usual: Not at all 9. Thoughts that you would be better off , or of hurting yourself in some way: Not at all Total Score: 0 Self-Efficacy 30-Day Re-eval Assessment We would like to know how confident you are in doing certain activities. Please select your confidence level for:: Select your confidence level for the following using the scale 1-10 where 1 is not at all confident and 10 is totally confident. Your score is the average of all 6 responses. Fatigue: How confident are you that you can keep the fatigue caused by your disease from interfering with the things you want to do? Select Number: 10 Physical Discomfort or Pain: How confident are you that you can keep the physical discomfort or pain of your disease from interfering with the things you want to do? Select Number: 10 Emotional Distress: How confident are you that you can keep the emotional distress caused by your disease from interfering with the things you want to do? Select Number: 10 Other Symptoms or Health Problems: How confident are you that you can keep other symptoms or health problems from interfering with the things you want to do? Select Number: 10 Different Tasks and Activities: How confident are you that you can do the different tasks and activities needed to manage your health condition so as to reduce your need to see a doctor? Select Number: 10 Medication: How confident are you that you can do things other than just taking medication to reduce how much your illness affects your everyday life? Select Number: 10 Total Score:: 10 Nutrition Survey
[2022-03-29 07:18] VITALS: BP 108/54; BP 110/58; BMI 29.7
== END 2022-04-04 23:59 ==
LOC: CR 08:00
PROVIDERS: PCP Family Medicine
DX: Z95.1 Presence of aortocoronary bypass graft (principal)
CPT/HCPCS: 93798

== ENCOUNTER 2022-05-03 08:00 | Outpatient (RCR) | payer MEDICARE, BC, SELFPAY ==
[2022-03-29 07:18] VITALS: BMI 29.7
[2022-04-05 00:37] VITALS: BP 108/54; BP 110/58
--- NOTE | 2022-04-26 12:09 | CR.ITP_ITS ---
Diagnosis Exercise - 60-day Assessment - Visit Date of Eval: 04/26/22 Session #:: 17 - Physician Prescribed Exercise Modalities: Treadmill, Rower, Airdyne, NuStep, SciFit, Lateral [place]zibah Frequency: 3x/week for 12 weeks [36 sessions] Intensity: 60-80% of age predicted maximum heart rate reserve Duration: 30-45 min Current METSs:: 5.5 Target Heart Rate:: 99-130 Current RPE:: 12 Maximum Excercise HR:: 119 Resting Blood Pressure: 108/46 Maximum Exercise Blood Pressure: 132/60 EKG Type: SB to ST with occas PVC and PAC. Inverted T wave - Outcomes & Goals Goals:: Verbalizes understanding of THR, RPE & goal METS by session 6, Documents in home exercise log/reports 30 min aerobic 5 day/wk by DC, Demonstrates accurate pulse taking by DC, Other additional outcome/goals: see below - Intervention & Plan Exercise Program Goals: Instruct on personal THR & RPE, Instruct on MET level & personal MET goal, Show patient to take own pulse /validate performance until accurate, Instruct on home exercise, Other additional plan/int - 30-day Reassessments 30 day Reassessments:: Progressing - increasing workloads - Physical Activity Home Exercise Physical Activity - Home Exercise: Safe Exercise, Warm-up, Self-monitoring, Cool-Down, Home Exercise > 30 min Daily, Sitting Time <3 hours/daily - Outcomes & Goals Outcomes/Goals: Demonstrates correct Warm-up/exercise Cool-Down (S3) if = 2.5 METs, Verbalizes symptoms of exercise intolerance by Session 3 (S3), Demonstrate safe equipment use (S3) & follows exercise prescrition (6), Other: See below - Intervention & Plan Plan/Intervention: Instruct warm-up & cool-down if exercising at > 2 METs, Instruct on symptoms of exercise intolerance & actions to take, Instruct & monitor on saf, Assess intial functional capacity & safety risk, Other See below Nutrition - Initial Assessment Nutrition - 30-Day Assessment Nutrition - 60-Day Assessment - Program Goals Nutrition Program Goals: LDL <100 optimal. 100 - 129 Near optimal. 130 - 159 Borderline High. 160 - 189 High. Total Cholesterol <200 desirable. 200 - 239 Borderline High. >/= 240 High. HDL < 40 Low >/=60 High. Triglycerides <150 desirable. <199 optimal. VlDL 5 - 40. HgbA1C <7%. BMI <25 Patient has diagnosis of Hyperlipidemia (ICD E78)?: Yes - Visit Date of Assessment:: 04/26/22 Session #:: 17 - Cholesterol/Lipids Determine presence & major risk factors that modify LDL goal: Hypertension or hypertensive medication, Low HDL cholesterol <40 mg/dL*, Family history of premature CHD in Male < 55 years: female <65 yearsFa, Age men > 45 years; women >/= 55 years Outcomes/Goals: Pt IDs own risk factors & lifestyle modifications by Session 10, Verbalizes symptoms of angina & response by session 3., Pt independently manages, Other Additional Outcomes/Goals: Intervention/Plan: Advocate for lipid panel cholesterol medication if appli cable, Instruct on personal lipid levels & lipid goals/NCEP guidelines, Instruct on cholesterol, Other additional plan/int Referral to dietitian:: Yes - medical nutrition therapy 30-day Reassessments:: Progressing - referred to dietition - Diabetes (Other Core Measures) Diabetes Type: Not Applicable - Weight Mgt (Other Care) Height: 5 ft 9 in Weight:: 91.399 kg BMI: 29.7 Diagnosis Overweight/Obesity BMI> 30% ICD-10 E66: No Diagnosis High BMI/Morbid Obesity BMI> 35% ICD-10 Z68: No Outcomes/Goals: Pt sets, maintains & shows weight loss goal & trend during rehab, Other additional outcomes/goals Intervention/Plan: Instruct on ideal BMI & set weight loss goal w/patient, Assist pt to ID & incorporate diet changes for weight loss by S9, Refer to Structured Weight Loss program as appropriate, Encourage goal of using 250- 300dcal per session for weight loss, Other additional plan/interventions 30 day Reassessments:: Progressing - referral to dietition - Healthy Eating Habits Will attend diet classes:: Yes Outcomes/Goals:: Consume diet rich in vegs,fruits,whole grain/high fiber,fish,lean meat, Limit sat/trans fats,cholesterol & added salts & sugars, Other additional outcome/goals: Intervention/Plan:: Assess current eating habits, Other Additional plan/interventions 30-day Reassessments:: Progressing - going to class - Education Gave educational materials for:: Signs & symptoms of hypoglycemia, Signs & symptoms of hyperglycemia, Relate diabetes to coronary artery disease, Healthy eating Nutrition - 90-Day Assessment Nutrition - Final Assessment Core - Initial Assessment Core - 30-Day Assessment Core - 60-Day Assessment - Visit Date of Eval: 04/26/22 Session #:: 17 - Medication Compliance Preventative Medication(s):: Aspirin, Statin/lipid, Beta mary H/O mental health issues: depression, anxiety, or addiction?: No Doesn?t believe in the benefits of treatment?: No Believes medications are unnecessary or harmful?: No Has a concern about medication side effects?: No Expresses concern over the cost of medications?: No Outcomes/Goals: Verbalizes medications,desired effect & common side effects @ DC, Pt self-reports following medication regimen, Keeps card in wallet w/medications listed by DC, Other additional outcome/goals: Interventions/plans: Instruct on medication effects & side effects, Review medication list w/patient every two weeks, Instruct importance of taking meds as ordered & assist problem solving, Other additional 30-day Reassessments:: Progressing - ecouraged to take meds - Tobacco Use Tobacco Use: Non-smoker - Hypertension Resting Blood Pressure:: 108/46 [place] [employer] Hypertension Guidelines: [place] [employer] Hypertension Guidelines. Normal BP Less than 120/80. Elevated BP 120/80. Hypertension Stage 1: BP 130-139/80-89. Hypertesnion Stage 2: BP 140 or higher/90 or higher. Hypertension Crisis: BP higher than 180/120 Peak Exercise Blood Pressure:: 132/60 Outcomes/Goals: Able to verbalize/achieve optimal blood pressure <130/80, Incorporates diet changes & exercise for blood pressure control by DC, Other additional outcomes/goals Interventions/plan: Instruct on optimal blood pressure, hypertension & medications, Instruct on effects of sodium, alcohol, stress, exercise &hypertension, Other additional plan/interventions 30 day Reassessments:: Progressing - encouraged to take meds - Tobacco Cessation Referral Smoking Cessation Referral:: No Individual Education/Counseling:: No Education Schedule Given:: Yes Core - 90 Day Assessment Core - Final Assessment Psychosocial - Initial Assess Psychosocial - 30-Day Assess Psychosocial - 60-Day Assess - VIsit Date of Eval: 04/26/22 Session #:: 17 Not Applicable: No - Outcomes/Goals: See list Psychosocial Outcomes/Goals:: ID's personal stressors & 2 strategies to manage stress by discharge, Other Additional outcome/goals: - Intervention/Plan: See List Interventions/Plan:: Assess stressors,coping strategies & signs of derpression on admission, Instruct/assist pt to develop coping & personal stress Mgt strategies, Refer to Behavioral Health if appropriate, Refer to Physician if a ppropriate, Instruct patient to recognize signs & symptoms of depression, Instruct patient to recog, Other additional plan/intervention Psychosocial - 90-Day Assess Psychosocial - Final Assessmen Patient Health Questionnaire 60-Day Re-eval Assessment 1. Little interest or pleasure in doing things: Not at all 2. Feeling down, depressed, or hopeless: Not at all 3. Trouble falling or staying asleep, or sleeping too much: Not at all 4. Feeling tired or having little energy: Not at all 5. Poor appetite or overeating: Not at all 6. Feeling bad about yourself -- or that you are a failure or have let yourself or your family down: Not at all 7. Trouble concentrating on things, such as reading the newspaper or watching television: Not at all 8. Moving or speaking so slowly that other people could have noticed. Or the opposite - being so fidgety or restless that you have been moving around a lot more than usual: Not at all 9. Thoughts that you would be better off , or of hurting yourself in some way: Not at all How difficult have these problems made it for you to do your work, take care of things at home, or get along with other people?: Not difficult at all Total Score: 0 Self-Efficacy 60-Day Re-eval Assessment We would like to know how confident you are in doing certain activities. Please select your confidence level for:: Select your confidence level for the boogie wing using the scale 1-10 where 1 is not at all confident and 10 is totally confident. Your score is the average of all 6 responses. Fatigue: How confident are you that you can keep the fatigue caused by your disease from interfering with the things you want to do? Select Number: 10 Physical Discomfort or Pain: How confident are you that you can keep the physical discomfort or pain of your disease from interfering with the things you want to do? Select Number: 10 Emotional Distress: How confident are you that you can keep the emotional distress caused by your disease from interfering with the things you want to do? Select Number: 10 Other Symptoms or Health Problems: How confident are you that you can keep other symptoms or health problems from interfering with the things you want to do? Select Number: 10 Different Tasks and Activities: How confident are you that you can do the different tasks and activities needed to manage your health condition so as to reduce your need to see a doctor? Select Number: 10 Medication: How confident are you that you can do things other than just taking medication to reduce how much your illness affects your everyday life? Select Number: 10 Total Score:: 10 Nutrition Survey
[2022-04-26 12:19] VITALS: BP 108/46; BP 132/60; BMI 29.7
== END 2022-05-05 23:59 ==
LOC: CR 08:00
PROVIDERS: PCP Family Medicine
DX: Z95.1 Presence of aortocoronary bypass graft (principal)
CPT/HCPCS: 93798

== ENCOUNTER 2022-06-04 08:00 | Outpatient (RCR) | payer MEDICARE, BC, SELFPAY ==
[2022-04-26 12:19] VITALS: BMI 29.7
[2022-05-06 00:36] VITALS: BP 108/46; BP 132/60
--- NOTE | 2022-05-28 07:27 | CR.ITP_ITS ---
Diagnosis Exercise - 90-day Assessment - Visit Date of Eval: 05/28/22 Session #:: 26 - Physician Prescribed Exercise Modalities: Treadmill, Airdyne, NuStep Frequency: 3x/week for 12 weeks [36 sessions] Intensity: 60-80% of age predicted maximum heart rate reserve Current METSs:: 5.5 Target Heart Rate:: 99-130 Current RPE:: 12-13 Maximum Excercise HR:: 119 Resting Blood Pressure: 100/40 Maximum Exercise Blood Pressure: 156/68 EKG Type: SB to ST with occas multifocal PVC's, occas PAC's with T wave inversion - Outcomes & Goals Goals:: Verbalizes understanding of THR, RPE & goal METS by session 6, Documents in home exercise log/reports 30 min aerobic 5 day/wk by DC, Demonstrates accurate pulse taking by DC, Other additional outcome/goals: see below - Intervention & Plan Exercise Program Goals: Instruct on personal THR & RPE, Instruct on MET level & personal MET goal, Show patient to take own pulse /validate performance until accurate, Instruct on home exercise, Other additional plan/int - 30-day Reassessments 30 day Reassessments:: Progressing - METS explained - Physical Activity Home Exercise Physical Activity - Home Exercise: Safe Exercise, Warm-up, Self-monitoring, Cool-Down, Home Exercise > 30 min Daily, Sitting Time <3 hours/daily - Outcomes & Goals Outcomes/Goals: Demonstrates correct Warm-up/exercise Cool-Down (S3) if = 2.5 METs, Verbalizes symptoms of exercise intolerance by Session 3 (S3), Demonstrate safe equipment use (S3) & follows exercise prescrition (6), Other: See below - Intervention & Plan Plan/Intervention: Instruct warm-up & cool-down if exercising at > 2 METs, Instruct on symptoms of exercise intolerance & actions to take, Instruct & monitor on saf, Assess intial functional capacity & safety risk, Other See below - 30-day Reassessments 30 day Reassessments:: Progressing - cool down encouraged Nutrition - Initial Assessment Nutrition - 30-Day Assessment Nutrition - 60-Day Assessment Nutrition - 90-Day Assessment - Program Goals Nutrition Program Goals: LDL <100 optimal. 100 - 129 Near optimal. 130 - 159 Borderline High. 160 - 189 High. Total Cholesterol <200 desirable. 200 - 239 Borderline High. >/= 240 High. HDL < 40 Low >/=60 High. Triglycerides <150 desirable. <199 optimal. VlDL 5 - 40. HgbA1C <7%. BMI <25 Patient has diagnosis of Hyperlipidemia (ICD E78)?: Yes - Visit Date of Assessment:: 05/28/22 Session #:: 26 - Cholesterol/Lipids (Other Core Measures) Determine presence & major risk factors that modify LDL goal: Hypertension or hypertensive medication, Low HDL cholesterol <40 mg/dL*, Family history of premature CHD in Male < 55 years: female <65 yearsFa, Age men > 45 years; women >/= 55 years Outcomes/Goals: Pt IDs own risk factors & lifestyle modifications by Session 10, Verbalizes symptoms of angina & response by session 3., Pt independently manages, Other Additional Outcomes/Goals: Intervention/Plan: Advocate for lipid panel cholesterol medication if applicable, Instruct on personal lipid levels & lipid goals/NCEP guidelines, Instruct on cholesterol, Other additional plan/int 30-day Reassessments:: Progressing - risk factors explained - Diabetes (Other Core Measures) Diabetes Type: Not Applicable - Weight Mgt (Other Care) Height: 5 ft 9 in Weight:: 88.451 kg BMI: 28.8 Diagnosis Overweight/Obesity BMI> 30% ICD-10 E66: No Diagnosis High BMI/Morbid Obesity BMI> 35% ICD-10 Z68: No Outcomes/Goals: Pt sets, maintains & shows weight loss goal & trend during rehab, Other additional outcomes/goals Intervention/Plan: Instruct on ideal BMI & set weight loss goal w/patient, Assist pt to ID & incorporate diet changes for weight loss by S9, Refer to Structured Weight Loss program as appropriate, Encourage goal of using 250- 300dcal per session for weight loss, Other additional plan/interventions 30 day Reassessments:: Progressing - going to nutrition class - Healthy Eating Habits Will attend diet classes:: Yes Outcomes/Goals:: Consume diet rich in vegs,fruits,whole grain/high fiber,fish,lean meat, Limit sat/trans fats,cholesterol & added salts & sugars, Other additional outcome/goals: Intervention/Plan:: Assess current eating habits, Other Additional plan/interventions 30-day Reassessments:: Progressing - going to nutrition class - Education Gave educational materials for:: Signs & symptoms of hypoglycemia, Signs & symptoms of hyperglycemia, Relate diabetes to coronary artery disease, Healthy eating Nutrition - Final Assessment Core - Initial Assessment Core - 30-Day Assessment Core - 60-Day Assessment Core - 90 Day Assessment - Visit Date of Eval: 05/28/22 Session #:: 26 - Medication Compliance Preventative Medication(s):: Aspirin, Statin/lipid, Beta mary H/O mental health issues: depression, anxiety, or addiction?: No Doesn?t believe in the benefits of treatment?: No Believes medications are unnecessary or harmful?: No Has a concern about medication side effects?: No Expresses concern over the cost of medications?: No Outcomes/Goals: Verbalizes medications,desired effect & common side effects @ DC, Pt self-reports following medication regimen, Keeps card in wallet w/medications listed by DC, Other additional outcome/goals: Interventions/plans: Instruct on medication effects & side effects, Review medication list w/patient every two weeks, Instruct importance of taking meds as ordered & assist problem solving, Other additional 30-day Reassessments:: Progressing - encouraged to take meds - Tobacco Use Tobacco Use: Non-smoker Do you use smokeless tobacco?: No - Hypertension Resting Blood Pressure:: 100/40 [place] [employer] Hypertension Guidelines: [place] [employer] Hypertension Guidelines. Normal BP Less than 120/80. Elevated BP 120/80. Hypertension Stage 1: BP 130-139/80-89. Hypertesnion Stage 2: BP 140 or higher/90 or higher. Hypertension Crisis: BP higher than 180/120 Peak Exercise Blood Pressure:: 156/68 Outcomes/Goals: Able to verbalize/achieve optimal blood pressure <130/80, Incorporates diet changes & exercise for blood pressure control by DC, Other additional outcomes/goals Interventions/plan: Instruct on optimal blood pressure, hypertension & medications, Instruct on effects of sodium, alcohol, stress, exercise &hypertension, Other additional plan/interventions 30 day Reassessments:: Progressing - encouraged to take meds - Tobacco Cessation Referral Smoking Cessation Referral:: No Individual Education/Counseling:: No Education Schedule Given:: Yes Core - Final Assessment Psychosocial - Initial Assess Psychosocial - 30-Day Assess Psychosocial - 60-Day Assess Psychosocial - 90-Day Assess - VIsit Date of Eval: 05/28/22 Session #:: 26 History of previous Mental disease:: No Psychosocial - Final Assessmen Patient Health Questionnaire 90-Day Re-eval Assessment 1. Little interest or pleasure in doing things: Not at all 2. Feeling down, depressed, or hopeless: Not at all 3. Trouble falling or staying asleep, or sleeping too much: Not at all 4. Feeling tired or having little energy: Not at all 5. Poor appetite or overeating: Not at all 6. Feeling bad about yourself -- or that you are a failure or have let yourself or your family down: Not at all 7. Trouble concentrating on things, such as reading the newspaper or watching television: Not at all 8. Moving or speaking so slowly that other people could have noticed. Or the opposite - being so fidgety or restless that you have been moving around a lot more than usual: Not at all 9. Thoughts that you would be better off , or of hurting yourself in some way: Not at all How difficult have these problems made it for you to do your work, take care of things at home, or get along with other people?: Not difficult at all Total Score: 0 Self-Efficacy 90-Day Re-eval Assessment We would like to know how confident you are in doing certain activities. Please select your confidence level for:: Select your confidence level for the following using the scale 1-10 where 1 is not at all confident and 10 is totally confident. Your score is the average of all 6 responses. Fatigue: How confident are you that you can keep the fatigue caused by your disease from interfering with the things you want to do? Select Number: 10 Physical Discomfort or Pain: How confident are you that you can keep the physical discomfort or pain of your disease from interfering with the things you want to do? Select Number: 10 Emotional Distress: How confident are you that you can keep the emotional distress caused by your disease from interfering with the things you want to do? Select Number: 10 Other Symptoms or Health Problems: How confident are you that you can keep other symptoms or health problems from interfering with the things you want to do? Select Number: 10 Different Tasks and Activities: How confident are you that you can do the different tasks and activities needed to manage your health condition so as to reduce your need to see a doctor? Select Number: 10 Medication: How confident are you that you can do things other than just taking medication to reduce how much your illness affects your everyday life? Select Number: 10 Total Score:: 10 Nutrition Survey
[2022-05-28 07:36] VITALS: BP 100/40; BP 156/68; BMI 28.8
== END 2022-06-04 23:59 ==
LOC: CR 08:00
PROVIDERS: PCP Family Medicine
DX: Z95.1 Presence of aortocoronary bypass graft (principal)
CPT/HCPCS: 93798

== ENCOUNTER 2022-06-25 08:00 | Outpatient (RCR) | payer MEDICARE, BC, SELFPAY ==
[2022-05-28 07:36] VITALS: BMI 28.8
[2022-06-05 01:27] VITALS: BP 100/40; BP 156/68
== END 2022-07-05 23:59 ==
LOC: CR 08:00
PROVIDERS: PCP Family Medicine
DX: Z95.1 Presence of aortocoronary bypass graft (principal)
CPT/HCPCS: 93798

== ENCOUNTER → 2022-09-09 | Outpatient (CLI) | payer MEDICARE, BC, SELFPAY ==
[2022-05-28 07:36] VITALS: BMI 28.8
[2022-09-09 18:09] LABS: PSA,Total - Annual Screen 2.07 ng/mL (0.00-4.00)
== END | disposition home or self-care (01) ==
LOC: BFHLAB 14:34
PROVIDERS: PCP Family Medicine; Visit Provider Family Medicine
DX: Z12.5 Encounter for screening for malignant neoplasm of prostate (principal)
CPT/HCPCS: 36415; 84153; G0103

== ENCOUNTER → 2022-09-30 | Outpatient (CLI) | payer MEDICARE, BC, SELFPAY ==
[2022-05-28 07:36] VITALS: BMI 28.8
[2022-09-30 15:32] LABS: Hematocrit 34.6 % (40-54); Hemoglobin 11.7 g/dL (13.0-16.5); Mean Corp Hgb Conc 33.8 g/dL (32-36); Mean Corpuscular Volume 94.5 fL (80-94); Platelet Count 212 K/mm3 (150-450); RBC Distribution Width CV 13.2 % (11.6-14.6); RBC Distribution Width SD 45.9 fl (35.1-43.9); Red Blood Count 3.66 M/mm3 (4.6-6.2); White Blood Count 7.4 K/mm3 (4.4-11.0)
[2022-09-30 15:47] LABS: ALB/GLOB Ratio 1.1 RATIO (0.9-2.4); AST(SGOT) 34 U/L (15-37); Alanine Aminotransfer ALT/SGPT 31 U/L (16-61); Albumin, Serum 3.7 g/dL (3.2-5.0); Alkaline Phosphatase 58 U/L (45-117); Anion Gap 7 (5-15); BUN 20 mg/dL (7-18); BUN/Creat Ratio 17.7 RATIO (10-20); Calcium,Total 8.8 mg/dL (8.5-10.1); Chloride 108 mmol/L (98-107); Creatinine, Serum 1.13 mg/dL (0.70-1.30); EST Glomerular Filtration Rate 69 mL/min (>60); Est Glom Filt Rate - Afr Amer 83 mL/min (>60); Globulin 3.5 g/dL (2.2-4.2); Glucose 92 mg/dL (74-106); Potassium 4.4 mmol/L (3.5-5.1); Protein, Total 7.2 g/dL (6.4-8.2); Sodium Level 141 mmol/L (136-145)
== END | disposition home or self-care (01) ==
LOC: BFHLAB 13:47
PROVIDERS: PCP Family Medicine; Visit Provider Otolaryngology
DX: C02.9 Malignant neoplasm of tongue, unspecified (principal)
CPT/HCPCS: 36415; 80053; 85027

== ENCOUNTER → 2023-03-10 | Outpatient (CLI) | payer MEDICARE, BC, SELFPAY ==
[2022-05-28 07:36] VITALS: BMI 28.8
--- NOTE | 2023-03-10 14:24 | CT_ITS ---
STUDY: LOW DOSE CT LUNG CANCER SCREENING REASON FOR EXAM: Male, 68 years old. SCREENING. 1PPD X 30 YEARS. QUIT SMOKING 10 YRS AGO RADIATION DOSAGE (If Supplied By Facility): CTDIvol = ( 2.01 ) mGy, DLP = ( 77.01 ) mGycm TECHNIQUE: No contrast was administered. Low dose technique was utilized (average mAS-38 and kVp 120). 1.25 mm axial source images with a slice interval of 1.25-mm were reconstructed in lung windows. 2.5 mm axial source images with a slice interval of 2.5-mm were reconstructed in lung windows. 5.0 mm axial source images with a slice interval of 5.0-mm were reconstructed in soft tissue windows. COMPARISON: Comparison is made with prior examination dated October 13, 2021. NODULES: Stable mammographic calcific granuloma in the anterior lateral aspect of the right upper lobe. Stable 5 mm noncalcified nodule in the posterior medial segment of the right upper lobe as seen on axial image #86. Emphysema: Stable scarring along the posterior medial aspect of the right lower lobe. Endobronchial lesion: Unremarkable Aorta: Mild atherosclerotic calcific plaques. CORONARY ARTERIES: Coronary artery calcification is seen. Heart: Unremarkable Pulmonary artery: Unremarkable Mediastinal nodes: Small benign-appearing mediastinal lymph nodes. Other chest and abdominal findings: CT/Low Dose CT Lung Screening IMPRESSION: Lung-RADS category 2 - Continue annual screening with LDCT in 12 months. IMPORTANT NOTES FOR USE: ACR Lung-RADS Version 1.1 Assessment Categories Release Date: 2018 Category: Coded 0-4 bases on nodule(s) with highest degree of suspicion. Negative screen is defined as categories 1 and 2; a positive screen is defined as categories 3 and 4. Category 3 and 4A nodules that are unchanged on interval CT should be coded as category 2, and individuals returned to screening in 12 months. Category 4X: Category 3 or 4 nodules with additional imaging findings that increase the suspicion of lung cancer, such as spiculation, GGN that doubles in size in 1 year, enlarged lymph notes, etc. Category Modifiers: S (significant finding unrelated to lung cancer) Electronically Signed: Trent Webster MD at 15:12 EDT ,
== END | disposition home or self-care (01) ==
LOC: CT 14:23
PROVIDERS: PCP Family Medicine; Referring Provider Nurse Practitioner Family; Visit Provider Nurse Practitioner Family
DX: Z12.2 Encounter for screening for malignant neoplasm of respiratory organs (principal); F17.210 Nicotine dependence, cigarettes, uncomplicated
CPT/HCPCS: 71271

== ENCOUNTER → 2023-05-18 | Outpatient (CLI) | payer MEDICARE, BC, SELFPAY ==
[2022-05-28 07:36] VITALS: BMI 28.8
[2023-05-18 10:03] LABS: Bacteria 0 SEEN /hpf (None Seen); Mucous, Urine 0 SEEN /hpf (<or=2+); Red Blood Cells-Urine 0 SEEN /hpf (0-5); Squamous Epithelial Cells - UA 0 SEEN /hpf (0-5); White Blood Cells 0 SEEN /hpf (0-5)
[2023-05-18 12:33] LABS: Absolute Neutrophil Count 2.9 X10^3/uL (2.0-7.7); Basophil# 0.03 X10^3/uL; Basophil% 0.6 % (0-1); Eosinophil# 0.28 X10^3/uL; Hematocrit 36.7 % (40-54); Hemoglobin 12.2 g/dL (13.0-16.5); Lymphocyte % 21.4 % (19-41); Mean Corp Hgb Conc 33.2 g/dL (32-36); Mean Corpuscular Hgb 32.3 pg (27.0-32.0); Mean Corpuscular Volume 97.1 fL (80-94); Mean Platelet Vol. 10.6 fl (6.2-12.0); Monocyte% 10.7 % (0-10); NRBC Flagged by Analyzer 0 % (0-5); Neutrophil # 2.85 X10^3/uL (2.7-7.7); Neutrophil % 61.1 % (47-70); Platelet Count 169 K/mm3 (150-450); RBC Distribution Width CV 13.2 % (11.6-14.6); RBC Distribution Width SD 46.9 fl (35.1-43.9); Red Blood Count 3.78 M/mm3 (4.6-6.2); White Blood Count 4.7 K/mm3 (4.4-11.0)
[2023-05-18 12:58] LABS: AST(SGOT) 22 U/L (15-37); Alanine Aminotransfer ALT/SGPT 23 U/L (16-61); Albumin, Serum 3.6 g/dL (3.2-5.0); Alkaline Phosphatase 55 U/L (45-117); Anion Gap 1 (5-15); BUN 22 mg/dL (7-18); BUN/Creat Ratio 21.4 RATIO (10-20); CPK Total, Creatine Kinase 174 U/L (39-308); Calcium,Total 8.7 mg/dL (8.5-10.1); Chloride 110 mmol/L (98-107); Creatinine, Serum 1.03 mg/dL (0.70-1.30); EST Glomerular Filtration Rate 76 mL/min (>60); Est Glom Filt Rate - Afr Amer 92 mL/min (>60); Globulin 3.5 g/dL (2.2-4.2); Glucose 90 mg/dL (74-106); Potassium 4.3 mmol/L (3.5-5.1); Protein, Total 7.1 g/dL (6.4-8.2); Sodium Level 139 mmol/L (136-145)
[2023-05-18 13:07] LABS: Color, Urine Yellow (Yellow); Glucose, Dipstick Normal (Normal); Ketone-Dipstick Negative (Negative); Leukocyte Esterase-Dipstick Negative /ul (Negative); Nitrite-Dipstick Negative (Negative); Occult Blood-Urine Negative /ul (Negative); Protein-Dipstick Negative (Negative); Specific Gravity, Urine 1.015 (1.002-1.030); Urine Bilirubin Dipstick Negative (Negative); Urine Clarity Clear (Clear); Urine Urobilinogen Normal (Normal)
[2023-05-18 14:11] LABS: Erythrocyte Sedimentation Rate 3 mm/hr (0-20)
[2023-05-19 14:09] LABS: Anti-Nuclear Antibody Test Negative (.); Anti-dsDNA Ab 1 IU/mL (0-9)
[2023-05-23 15:07] LABS: Aldolase 3.6 U/L (3.3-10.3)
== END | disposition home or self-care (01) ==
PROVIDERS: PCP Nurse Practitioner Family; Referring Provider Physician Assistant Medical; Visit Provider Physician Assistant Medical
DX: L30.8 Other specified dermatitis (principal); L57.0 Actinic keratosis; L82.1 Other seborrheic keratosis; Z79.899 Other long term (current) drug therapy
CPT/HCPCS: 36415; 80053; 81001; 82085; 82088; 82550; 85025; 85652; 86038; 86225

== ENCOUNTER → 2023-09-13 | Outpatient (CLI) | payer MEDICARE, BC, SELFPAY ==
[2022-05-28 07:36] VITALS: BMI 28.8
--- OUTSIDE RECORDS SUMMARY | 2023-09-13 15:42 | XMS RPT_ITS | CCD ---
Author Name Unknown Address [address] [facility] [address] [place] [address] Organization [facility] Care Team Providers Care Food Technician Name Role Phone REZA NIETO MD Primary Care Physician Reza Nieto Unavailable Unavailable Unavailable DR SOLIS BEST DO Primary Care Physician [phone] James Henriquez Attending Unavailable Gerson, Dr. Reza Bingham Primary Care Unavail able Gerson, Dr. Reza Bingham Primary Care Unavail able James Henriquez Attending Unavailable James Henriquez Attending Unavailable Gerson, Dr. Reza Bingham Primary Care Unavail able James Henriquez Attending Unavailable Gerson, Dr. Reza Bingham Primary Care Unavail able James Henriquez Attending Unavailable Gerson, Dr. Reza Bingham Primary Care Unavail able James Henriquez Attending Unavailable Gerson, Dr. Reza Bingham Primary Care Unavail able Gerson, Dr. Reza Bingham Primary Care Unavail able Reginald Henriquezre Admitting Unavailable Aubree, James Referring Unavailable Aubree James Attending Unavailable UNKNOWN, UNKNOWN Attending Unavailable Gerson, Dr. Reza Bingham Primary Care Unavail able Dr. Tari Zambrano Referring Unavailable Aubree, James Attending Unavailable Gerson, Dr. Reza Bingham Primary Care Unavail airam NIETO MD, REZA Primary Care Unavailable MARYBETH BENDER Attending Unavailab lele TINEO MD, PRIYA Attending REZA Watson MD Primary Care Unavailable PRIYA TINEO MD Attending U nate NIETO MD, REZA Primary Care Unavailable DR SOLIS BEST DO Primary Care Unavailab PRIYA Tripathi MD Attending U [facility], DR SOLIS Wiggins Primary Care Unavailab CHRISTOPHER Short Attending [facility], DR SOLIS Wiggins Primary Care UnavailPRIYA Steiner MD Attending U [facility], DR SOLIS Wiggins Primary Care Unavailab lele TINEO MD, PRIYA Attending U REZA Mcqueen MD Primary Care Unavailable NOMAN LI, PRIYA Attending U nate Zambrano MD, Tari Villagomez Unavailable Tari Zambrano MD Primary Care Provider JAMES HENRIQUEZ Attending Unavailable TARI ZAMBRANO Primary Care Unavaila ble Medications Current Medications Medication Drug Class(es) Dates Sig (Normalized) Sig (Original) acetaminophen 650 mg oral tablet (9 sources) Start: 12-10-2021 acetaminophen Dose : 650 mg = 2 tab(s), Oral, q4h, PRN Pain, scale 1-3, 0 Refill(s) Start Date: 12/10/21 Status: Ordered aspirin 81 mg delayed release oral tablet (20 sources) Platelet Aggregation Inhibitor, Nonsteroidal Anti-inflammatory Drug Start: 07-10-2021 aspirin 81 mg EC tablet 1 tablet (81 mg). 0 07/10/2021 Active Completed/Discontinued Medications Medication Drug Class(es) Dates Sig (Normalized) Sig (Original) furosemide 20 mg oral tablet (6 sources) Loop Diuretic Start: 12-15-2021 End: 01-14-2022 Lasix 20 mg oral tablet Dose : 20 mg = 1 tab(s), Oral, qDay, PRN Swelling, # 30 tab(s), 0 Refill(s), Pharmacy: [facility]/pharmacy #[id number], 175.3, cm, 12/03/21 17:34:00 EDT, Height Start Date: 12/15/21 Stop Date: 01/14/22 Status: Ordered Problems Active Problems Problem Classification Problem Date Documented Da te Episodic/Chronic Anxiety disorders (11 sources) Anxiety Onset: 09-05-2016 07-07-2021 Chronic Cancer of head and neck (20 sources) Malignant tumor of tongue; Translations: [Malignant neoplasm of tongue, unspecified] Onset: 10-06-2022 Chronic Cardiac dysrhythmias (5 sources) Atrial trigeminy 07-16-2022 Chronic Conditions associated with dizziness or vertigo (6 sources) Postural dizziness 01-15-2022 Episodic Conduction disorders (5 sources) Left bundle branch block 07-16-2022 Chronic Congestive heart failure; nonhypertensive (12 sources) Left ventricular diastolic dysfunction ; Translations: [Heart failure] Onset: 09-05-2020 07-07-2021 Chronic Coronary atherosclerosis and other heart disease (20 sources) Coronary arteriosclerosis; Translations: [History of myocardial infarction] Onset: 10-11-2022 07-10-2021 Chronic Disorders of lipid metabolism (12 sources) Dyslipidemia; Translations: [Hyperlipidemia] Onset: 10-11-2022 08-10-2021 Chronic Essential hypertension (11 sources) Hypertensive disorder; Translations: [Essential (primary) hypertension] Onset: 10-11-2022 08-10-2021 Chronic Occlusion or stenosis of precerebral arteries (13 sources) Left carotid artery stenosis; Translations: [Occlusion and stenosis of unspecified carotid artery] Onset: 10-06-2022 07-07-2021 Chronic Past or Other Problems Problem Classification Problem Date Documented Da te Episodic/Chronic Coronary atherosclerosis and other heart disease (1 source) Presence of aortocoronary bypass graft; Translations: [Presence of aortocoronary bypass graft] Onset: 10-11-2022 Episodic Other aftercare (1 source) halfway (current) use of aspirin; 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] Onset: 10-11-2022 Episodic Other aftercare (1 source) Other long-term (current) drug therapy; Translations: [Other long-term (current) drug therapy] Onset: 10-06-2022 Episodic Other lower respiratory disease (1 source) Solitary pulmonary nodule; Translations: [Solitary pulmonary nodule] Onset: 10-06-2022 Episodic Phlebitis; thrombophlebitis and thromboembolism (11 sources) Thrombosis of superficial vein of lower limb Onset: 09-05-2019 07-07-2021 Episodic Results Test Name Value Interpretation Reference Range Facil ity Vital Signs Date Time Vital Sign Value Performing Clinician Facility 08-23-2023 15:28-0500 Body height 175.3 cm James Henriquez MD Work Phone: [facility] 08-23-2023 15:28-0500 Body mass index (BMI) [Ratio] 27.67 kg/m2 James Henriquez MD Work Phone: [facility] 08-23-2023 15:28-0500 Body temperature 97 [degF] James Henriquez MD Work Phone: [facility] 08-23-2023 15:28-0500 Body weight 85 kg James Henriquez MD Work Phone: [facility] 05-24-2023 15:11-0400 Body mass index (BMI) [Ratio] 28.03 kg/m2 Reza Nieto Work Phone: [facility]Jatiuowhvrpoee[facility]A [facility] Work Phone: 05-24-2023 15:11-0400 Body surface area Derived from formula 2.02 m2 Reza Nieto Work Phone: VR-Notzwkntcmlewy-F [facility] Work Phone: 05-24-2023 15:11-0400 Body weight 86.09 kg Reza Nieto Work Phone: QJ-Aylfdfhkyoupnh-T [facility] Work Phone: 12-24-2022 09:44-0400 Body height 175.26 cm Reza Nieto Work Phone: TS-Rhiflkaruvrouv-O [facility] Work Phone: 12-24-2022 09:44-0400 Body mass index (BMI) [Ratio] 27.22 kg/m2 Reza iNeto Work Phone: MW-Luwzzcjgugmnqm-C [facility] Work Phone: 12-24-2022 09:44-0400 Body surface area Derived from formula 2 m2 Reza Nieto Work Phone: QX-Frtmwjwwtgsebi-X [facility] Work Phone: 12-24-2022 09:44-0400 Body temperature 36.6 [degF] Reza Wiggins Gerson Work Phone: IE-Jagrrwizexubeg-H [facility] Work Phone: 12-24-2022 09:44-0400 Body weight 83.6 kg Reza Wiggins Gerson Work Phone: NP-Roiumpbgvpjpjp-K [facility] Work Phone: 10-26-2022 13:58-0500 Body height 175.26 cm Reza Almeidanan Work Phone: UT-Oglpfuvngzxlon-A [place] Work Phone: 10-26-2022 13:58-0500 Body mass index (BMI) [Ratio] 26.73 kg/m2 Reza Wiggins G[place] Work Phone: EV-Oauwkwuqrxxbzc-X [place] Work Phone: 10-26-2022 13:58-0500 Body surface area Derived from formula 1.98 m2 Reza Wiggins Gerson Work Phone: FJ-Pwgvkobnisiove-V [place] Work Phone: 10-26-2022 13:58-0500 Body temperature 98.06 [degF] Reza Almeidanan Work Phone: DR-Feefhmibylgiga-C [place] Work Phone: 10-26-2022 13:58-0500 Body weight 82.1 kg Reza Wiggins Gerson Work Phone: MO-Wxtrmoncjfeqts-B [place] Work Phone: 09-28-2022 09:03-0500 Body height 175.26 cm Reza Nieto Work Phone: AB-Maxujngaxipstn-H [place] Work Phone: 09-28-2022 09:03-0500 Body mass index (BMI) [Ratio] 27.32 kg/m2 Reza Almeidanan Work Phone: ZN-Tcdsggvmsuysim-C [place] Work Phone: 09-28-2022 09:03-0500 Body surface area Derived from formula 2 m2 Reza Rosalie Nieto Work Phone: XV-Ndhasholinwmsa-Z [place] Work Phone: 09-28-2022 09:03-0500 Body weight 83.92 kg Reza Rosalie Gerson Work Phone: FM-Spzwqywgquoblg-D [place] Work Phone: Encounters Encounter Date Encounter Type Care Provider Facility Start: 08-23-2023 End: 08-23-2023 ambulatory JAMES [facility] Start: 08-23-2023 End: 08-23-2023 Office outpatient visit 15 minutes James Henriquez MD Work Phone: [facility] Procedures Date Procedure Procedure Detail Performing Clinician Start: 08-18-2022 Flavio DE LOS SANTOS Plan of Treatment Date Care Activity Detail Author Start: 09-03-2023 COVID-19 Vaccine (5 - Moderna series) COVID-19 Vaccine (5 - Moderna series) [facility] Start: 05-24-2023 FUV, Provider: James Henriquez, Status: Pen, Time: 3:00 PM FUV, Provider: James Henriquez, Status: Pen, Time: 3:00 PM IF-Qpqjyucuxcdsoa-Zqe [place] Work Phone: Start: 02-22-2023 FUV, Provider: James Henriquez, Status: Pen, Time: 2:15 PM FUV, Provider: James Henriquez, Status: Pen, Time: 2:15 PM JW-Pouhwzimtadzok-Tml dman Work Phone: Start: 12-24-2022 FUV, Provider: James Henriquez, Status: Pen, Time: 9:30 AM FUV, Provider: James Henriquez, Status: Pen, Time: 9:30 AM DC-Pktpsvakijdmpv-Hym [place] Work Phone: Start: 10-26-2022 POV, Provider: James Henriquez, Status: Pen, Time: 2:00 PM POV, Provider: James Henriquez, Status: Pen, Time: 2:00 PM LJ-Hssnvvckwggekv-Tbz [place] Work Phone: Start: 10-11-2022 [facility], Provider: James Henriquez, Status: Pen, Time: 10:00 AM [facility], Provider: James Henriquez, Status: Pen, Time: 10:00 AM TV-Tknssyweyfgwht-Qgv in [place] [address] Work Phone: Start: 03-31-2022 DTaP/Tdap/Td Vaccines (2 - Td or Tdap) DTaP/Tdap/Td Vaccines (2 - Td or Tdap) [facility] Start: 02-14-2020 Abdominal aortic aneurysm screening Abdominal Aortic Aneurysm (AAA) Screening [facility] Start: 1973 Diabetes mellitus screening Diabetes Screening [facility] Start: 1973 Hepatitis C screening Hepatitis C Screening [facility] Start: 1961 Pneumococcal Vaccine: 65+ Years (1 - PCV) Pneumococcal Vaccine: 65+ Years (1 - PCV) [facility] Start: 1955 Lipid panel Lipid Panel [facility] Start: 1955 Medicare Annual Wellness Visit Medicare Annual Wellness Visit (AWV) [facility] Start: 1955 Screening for malignant neoplasm of colon [facility] Immunizations Immunization Date Immunization Notes Care Provider Bora lerma 07-16-2021 SARS-CoV-2 (COVID-19 ) mRNA-0823 vaccine LAZARUS LUTHER OIL PIPE 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 SPECIALIST [facility] 06-09-2021 influenza virus vaccine, unspecified formulation LAZARUS LUTHER OIL PIPE 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 SPECIALIST [facility] 12-17-2020 SARS-CoV-2 (COVID-19 ) mRNA-1273 vaccine LAZARUS LUTHER OIL PIPE 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 SPECIALIST [facility] 11-18-2020 SARS-CoV-2 (COVID-19 ) mRNA-1273 vaccine LAZARUS LUTHER OIL PIPE 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 SPECIALIST [facility] 08-06-2020 zoster vaccine recombinant LAZARUS LUTHER OIL PIPE 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 SPECIALIST [facility] 05-31-2020 zoster vaccine recombinant LAZARUS ASHKAN OIL PIPE 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 SPECIALIST [facility] 06-13-2019 influenza virus vaccine, unspecified formulation LAZARUS LUTHER OIL PIPE 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 SPECIALIST [facility] 06-04-2018 influenza virus vaccine, unspecified formulation LAZARUS LUTHER OIL PIPE 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 SPECIALIST [facility] 05-13-2015 zoster vaccine, live LAZARUS MARQUITA CHOLS OIL PIPE 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 SPECIALIST [facility] Payers Date Payer Category Payer Medicare [id number] 2020 Medicare MEDICARE MEDICAR E PART A AND B [id number] 2020-Present [address] [place] [address] [id number] 2020 Unknown 2020 Unknown [id number] 1955 Unknown [id number] [id number] 1955 Unknown [id number] 2.16.840.1.036469.3.579.2.356 1955 Unknown [id number] 2.16.840.1.895366.3.579.2. 1955 Unknown [id number] 2.16.840.1.595532.3.579.2. 1955 Unknown [id number] 2.16.840.1.197769.3.579.2. 1955 Unknown [id number] 2.16.840.1.438217.3.579.2. 1955 Unknown [id number] 2.16.840.1.937222.3.579.2. 1955 Unknown [id number] 2.16.840.1.427260.3.579.2. 1955 Unknown [id number] 2.16.840.1.844344.3.579.2. 1955 Unknown [id number] 2.16.840.1.784083.3.579.2. 1955 Unknown [id number] 2.16.840.1.395593.3.579.2. 1955 Unknown [id number] 2.16.840.1.945184.3.579.2. 1955 Unknown [id number] 2.16.840.1.764810.3.579.2. 1955 Unknown [id number] 2.16.840.1.913098.3.579.2. 1955 Unknown [id number] 2.16.840.1.474689.3.579.2. 1955 Unknown [id number] 2.16.840.1.100462.3.579.2. 1955 Unknown [id number] 2.16.840.1.148590.3.579.2.627 1955 Unknown [id number] 2.16.840.1.021186.3.579.2.1245 Social History Date Type Detail Facility Start: 07-07-2021 End: 08-23-2023 Ex-smoker (finding) [facility] Sex Assigned At Female [facility] Start: 08-23-2023 [facility] alcohol use [facility] Work Phone: End: 09-05-2012 History of tobacco use Current smoker [facility] Work Phone: End: 09-05-2012 History of tobacco use Cigarette Smoker [facility] Work Phone: Start: 08-23-2023 Tobacco use and exposure Smokeless tobacco non-user [facility] Work Phone: Start: 08-23-2023 Tobacco use panel [facility] Work Phone: Start: 1955 Sex Assigned At Not on file [facility] Work Phone: Start: 08-13-2023 End: 08-23-2023 Exposure to SARS-CoV-2 (event) Not sure [facility] Clinical Notes 12-15-2021 to 08-23-2023 James Henriquez MD - 08/23/2023 3:00 PM ESTLaboratoryLaboratoryLaboratoryLaboratoryLaboratoryRadiologyLaboratoryLaborato ryLaboratory Note Date & Type Note Facility 08-23-2023 History of Present illness Narrative Provider Impressions 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 The tumor thickness was 3.6 mm. He is followed clinically. There is no evidence of any tumor recurrence. I will see him in 4 months. Chief Complaint Follow-up status post surgery for an oral cavity cancer History of Present Illness' This patient was seen in September 2022 at the request of a local colleague. He was at his dentist and was found to have a lesion of his anterior tongue that was biopsied and it was consistent with squamous cell carcinoma. On October 11, 2022 he underwent a left partial glossectomy. Some of the margins were close. The depth of the tumor invasion was 3.6 mm. He was presented at our tumor board and it was felt that he could be followed. He has not had any issues. Physical Exam Examination of the oral cavity and oropharynx is negative. There is no evidence of any mucosal lesions. There is some scarring underneath the tongue on the left side. I cannot appreciate any significant induration. There is good mobility of the tongue and palate. There is good mandibular excursion. Palpation of the parotid, neck, and thyroid field fails to show any worrisome masses or adenopathies. A flexible laryngoscopy was carried out. Under topical Xylocaine and Zay-Synephrine the scope was introduced through the nostril. The nasopharynx, base of tongue, hypopharynx, and larynx are visualized. The vocal cords are normally mobile. There is no pooling of secretions in the piriform sinuses. There is no evidence of any mucosal lesions. documented in this encounter [facility] Work Phone: 03-05-2023 Evaluation + Plan note Future Scheduled TestsBasic Metabolic Panel 03/05/23Basic Metabolic Panel 04/27/23 [facility] 10-22-2022 Note HERRERA VAZQUEZ was presented at Head and Neck Tumor Board Conference Conference date: 22-Oct-2022 Presenting Provider(s): Dr. James Henriquez Presenting location(s): [facility] Conference Review Type: Treatment Outcome Impression Direct laryngoscopy; bronchoscopy; esophagoscopy; left partial glossectomy completed 10.11.2022. Review imaging. CT demonstrates nothing could be found as far as tumor. A couple of pulmonary nodules noted, very small, under 5mm. Granulomatous or post inflammatory in nature. Path demonstrates 1.1cm SCCa mod diff 3.6mm depth of invasion. No LVI no PNI. pT1 N0 M0 SCCa. Primary site: Tongue Histology: Squamous cell ca Head and Neck histology: Squamous Cell CA Stage: pT1 N0 M0 National Guidelines discussed: yes Recommendations Recommendations Observation, Surveillance, Watchful Waiting Other recommendations: Observation. Disclaimer SCC tumor board recommendations represent the consensus opinion of physicians present at a weekly patient care conference. The treating SCC physician is not always present, and many of the physicians formulating the recommendation have not personally seen or examined the patient under discussion. It is understood that the treating SCC physician considers the expertise of the Tumor Board Recommendation in formulating his/her plan for the patient. However, in many situations, based on individualized patient considerations, a different plan is determined by the treating physician to be the optimal medical management. Electronic Signatures: Alissa Kiran (COOR) (Signed 22-Oct-2022 08:34) Authored: Impression, Recommendations, Note, Disclaimer Last Updated: 22-Oct-2022 08:34 by Alissa Kiran (COOR) [facility] 10-11-2022 Note Post Operative Note: PreOp Diagnosis: left tongue cancer Post-Procedure Diagnosis: left tongue cancer Procedure: 1. direct laryngoscopy 2. bronchoscopy 3. esophagoscopy 4. left partial glossectomy Surgeon: James Henriquez MD Resident/Fellow/Other Endoscope Technician: Radha Gibson MD Anesthesia: general Estimated Blood Loss (mL): 10cc Specimen: yes Complications: none Findings: 2cm x 1cm left lateral tongue lesion s/p excision with primary closure Patient Returned To/Condition: PACU/Stable Attestation: Note Completion: I am a:Resident/Fellow Attending AttestationI was present for the entire procedure Electronic Signatures: Radha Gibson (Resident)) (Signed 11-Oct-2022 14:48) Authored: Post Operative Note, Note Completion James Henriquez) (Signed 12-Oct-2022 06:27) Authored: Note Completion Co-Signer: Post Operative Note, Note Completion Last Updated: 12-Oct-2022 06:27 by James Henriquez) [facility] 10-11-2022 Note History & Physical R eviewed: I have reviewed the History and Physical dated: 06-Oct-2022 History and Physical reviewed and relevant findings noted. Patient examined to review pertinent physical findings.: No significant changes Home Medications Reviewed: no changes noted Allergies Reviewed: no changes noted ERAS (Enhanced Recovery After Surgery): ERAS Patient: no Consent: COVID-19 Consent: COVID-19 Risk ConsentSurgeon has reviewed underwood risks related to the risk of jaylene COVID-19 and if they contract COVID-19 what the risks are. Attestation: Note Completion: I am a: Resident/Fellow Attending AttestationI saw and evaluated the patient. I personally obtained the underwood and critical portions of the history and physical exam or was physically present for underwood and critical portions performed by the resident/fellow. I reviewed the resident/fellows documentation and discussed the patient with the resident/fellow. I agree with the resident/fellows medical decision making as documented in the note. I personally evaluated the patient [id number] Electronic Signatures: Radha Gibson (Resident)) (Signed 11-Oct-2022 13:12) Authored: History & Physical Reviewed, ERAS, Consent, Note Completion James Henriquez) (Signed 12-Oct-2022 06:25) Authored: Note Completion Co-Signer: History & Physical Reviewed, ERAS, Consent, Note Completion Last Updated: 12-Oct-2022 06:25 by James Henriquez) [facility] 09-05-2022 History of Present illness Narrative This patient was seen in September 2022 at the request of a local colleague. He was at his dentist and was found to have a lesion of his anterior tongue that was biopsied and it was consistent with squamous cell carcinoma. On October 11, 2022 he underwent a right partial glossectomy. Some of the margins were close. The depth of the tumor invasion was 3.6 mm. He was presented at our tumor board and it was felt that he could be followed. [facility]Xev[facility]zqz[facility]mtzg[facility]Pmjykwvz Work Phone: 09-05-2022 History of Present illness Narrative This patient was seen in September 2022 at the request of a local colleague. He was at his dentist and was found to have a lesion of his anterior tongue that was biopsied and it was consistent with squamous cell carcinoma. On October 11, 2022 he underwent a right partial glossectomy. Some of the margins were close. The depth of the tumor invasion was 3.6 mm. He was presented at our tumor board and it was felt that he could be followed. He has not had any issues. [facility] Work Phone: 09-05-2022 History of Present illness Narrative This patient was seen in September 2022 at the request of a local colleague. He was at his dentist and was found to have a lesion of his anterior tongue that was biopsied and it was consistent with squamous cell carcinoma. On October 11, 2022 he underwent a right partial glossectomy. Some of the margins were close. The depth of the tumor invasion was 3.6 mm. He was presented at our tumor board and it was felt that he could be followed. He has not had any issues. [facility] Work Phone: 09-05-2022 History of Present illness Narrative This patient was seen in September 2022 at the request of a local colleague. He was at his dentist and was found to have a lesion of his anterior tongue that was biopsied and it was consistent with squamous cell carcinoma. On October 11, 2022 he underwent a left partial glossectomy. Some of the margins were close. The depth of the tumor invasion was 3.6 mm. He was presented at our tumor board and it was felt that he could be followed. He has not had any issues. [facility] Work Phone: 02-24-2022 Evaluation + Plan note Future Scheduled TestsLipid Profile 02/24/22 [facility] 12-15-2021 Evaluation + Plan note Future Scheduled TestsBasic Metabolic Panel 12/15/21Lipid Profile 01/13/23Lipid Profile 02/24/22 [facility] Chief complaint Narrative - Reported Consultation for an oral cavity cancer [facility] Work Phone: Chief complaint Narrative - Reported Consultation for an oral cavity cancer [facility] Work Phone: Evaluation + Plan note Future Appointments Appointment Date:08/10/2021 09:15:00 AM Scheduled Provider: Location:[facility] Appointment Type:CV OV [facility] Evaluation + Plan note Future Appointments Appointment Date:12/03/2021 10:00:00 AM Scheduled Provider: Location:[facility] Appointment Type:CV Procedure - Heart Lab/Hybrid OR Appointment Date:01/12/2022 02:30:00 PM Scheduled Provider: Location:[facility] Appointment Type:CV OV Future Scheduled TestsLipid Profile 02/24/22 [facility] Evaluation + Plan note Future Appointments Appointment Date:01/05/2022 01:30:00 PM Scheduled Provider:LAZARUS LUTHER Location:[facility] Appointment Type:CTS OV Post Op Follow Up Appointment Date:01/12/2022 02:30:00 PM Scheduled Provider: Location:[facility] Appointment Type:CV OV Future Scheduled TestsBasic Metabolic Panel 12/15/21Lipid Profile 02/24/22XR Chest 2 Views (PA & Lateral) 01/05/22 [facility] Evaluation + Plan note Future Appointments Appointment Date:01/15/2022 09:15:00 AM Scheduled Provider: Location[facility] Appointment Type:CV OV Future Scheduled TestsBasic Metabolic Panel 12/15/21Lipid Profile 02/24/22 [facility] Evaluation + Plan note Future Appointments Appointment Date:04/20/2022 01:30:00 PM Scheduled Provider: Location:[facility] Appointment Type:CV OV Future Scheduled TestsBasic Metabolic Panel 12/15/21Lipid Profile 02/24/22 [facility] Evaluation + Plan note Future Appointments Appointment Date:04/27/2023 10:30:00 AM Scheduled Provider:MARYBETH MORRIS Location:[facility] Appointment Type:CV OV Future Scheduled TestsBasic Metabolic Panel 03/05/23 [facility] documented in this encounter [facility] Work Phone: History of Present illness NarrativeThis patient is seen at the request of a local colleague. He was at his dentist recently and was found to have a lesion that was biopsied and it was consistent with squamous cell carcinoma. He is here today for further management. He has no symptoms related to the presence of this lesion.[facility] Work Phone: History of Present illness NarrativeThis patient is seen at the request of a local colleague. He was at his dentist recently and was found to have a lesion that was biopsied and it was consistent with squamous cell carcinoma. He is here today for further management. He has no symptoms related to the presence of this lesion.[facility] [address] Work Phone: Hospital course Narrative No data available for this section [facility] Hospital Discharge instructions No data available for this section [facility] Progress note No data available for this section [facility] Chief Complaint Follow-up status post surgery for an oral cavity cancerFollow-up status post surgery for an oral cavity cancerFollow-up status post surgery for an oral cavity cancerFollow-up status post surgery for an oral cavity cancer Summary Purpose Family History No Family History Records Found Advance Directives No Advanced Directives Records FoundNo Advanced Directives Records FoundNo Advanced Directives Records FoundNo Advanced Directives Records Found Additional Source Comments Care Team (unrecognized sect ion and content) Care Team (unrecognized sect ion and content) Care Team Personnel Name: PRIYA TINEO MD Position: P4 Physician - Cardiology Med Service: Active Provider Member Role: Rail Car Welder Address: Address: [address] [place], [place] [address] Name: REZA NIETO MD Member Role: Primary Care Physician Address: Address: [address] [place] [address] Care Team Related Persons Name: GEORGEJAMESMARIKA Care Team Personnel Name: PRIYA TINEO MD Position: P4 Physician - Cardiology Member Role: Rail Car Welder Address: Address: [address] [place], [place] [address] Name: REZA NIETO MD Member Role: Primary Care Physician Address: Address: [address] [place] [phone] [place] Care Team Related Persons Name: MARIKA VAZQUEZ (unrecognized sect ion and content) No Status Records FoundNo Status Records FoundNo Status Records FoundNo Status Records Found INFORMATION SOURCE (unrecogn ized section and content) DATE CREATED AUTHOR AUTHOR'S ORGANIZ ATION 05/26/2023 [employer] DATE CREATED AUTHOR AUTHOR'S ORGANIZ ATION 08/09/2023 [facility] ([place] DATE CREATED AUTHOR AUTHOR'S ORGANIZ ATION 08/27/2023 [facility] Reason for Visit (unrecogniz ed section and content) FOR RECORDS PERTAINING TO PATIENTS WHO ARE OR HAVE BEEN ENROLLED IN A CHEMICAL DEPENDENCY/SUBSTANCEABUSE PROGRAM, SOME INFORMATION MAY BE OMITTED. This clinical summary was aggregated from multiple sources. Caution should be exercised in using it in the provision of clinical care. This summary normalizes information from multiple sources, and as a consequence, information in this document may materially change the coding, format and clinical context of patient data. In addition, data may be omitted in some cases. CLINICAL DECISIONS SHOULD BE BASED ON THE PRIMARY CLINICAL RECORDS. [employer] provides no warranty or guarantee of the accuracy or completeness of information in this document.
[2023-09-13 18:09] LABS: Absolute Lymphocyte Count 1.01 X10^3/uL (0.83-4.51); Absolute Neutrophil Count 3.8 X10^3/uL (2.0-7.7); Basophil# 0.02 X10^3/uL; Basophil% 0.4 % (0-1); Eosinophils% 3.6 % (0-5); Hematocrit 36.1 % (40-54); Hemoglobin 11.7 g/dL (13.0-16.5); Lymphocyte # 1.01 X10^3/ul (0.83-4.51); Lymphocyte % 18.1 % (19-41); Mean Corp Hgb Conc 32.4 g/dL (32-36); Mean Corpuscular Hgb 31.6 pg (27.0-32.0); Mean Corpuscular Volume 97.6 fL (80-94); Mean Platelet Vol. 10.3 fl (6.2-12.0); Monocyte# 0.53 X10^3/uL; Monocyte% 9.5 % (0-10); NRBC Flagged by Analyzer 0 % (0-5); Platelet Count 183 K/mm3 (150-450); RBC Distribution Width CV 13.4 % (11.6-14.6); RBC Distribution Width SD 48.2 fl (35.1-43.9); White Blood Count 5.6 K/mm3 (4.4-11.0)
[2023-09-13 18:26] LABS: AST(SGOT) 31 U/L (15-37); Alanine Aminotransfer ALT/SGPT 25 U/L (16-61); Albumin, Serum 3.7 g/dL (3.2-5.0); Alkaline Phosphatase 62 U/L (45-117); Anion Gap 5 (5-15); BUN 23 mg/dL (7-18); BUN/Creat Ratio 21.7 RATIO (10-20); Calcium,Total 8.5 mg/dL (8.5-10.1); Chloride 111 mmol/L (98-107); Cholesterol 113 mg/dL (200); Creatinine, Serum 1.06 mg/dL (0.70-1.30); EST Glomerular Filtration Rate 74 mL/min (>60); Est Glom Filt Rate - Afr Amer 89 mL/min (>60); Globulin 3.8 g/dL (2.2-4.2); Glucose 89 mg/dL (74-106); High Density Lipoprotein 47 mg/dL; PSA,Total - Annual Screen 2.32 ng/mL (0.00-4.00); Potassium 4.6 mmol/L (3.5-5.1); Protein, Total 7.5 g/dL (6.4-8.2); Sodium Level 141 mmol/L (136-145); Triglycerides 57 mg/dL; Very Low Density Lipoprotein 11 mg/dL (5-40)
== END | disposition home or self-care (01) ==
LOC: BFHLAB 14:04
PROVIDERS: PCP Nurse Practitioner Family; Visit Provider Nurse Practitioner Family
DX: I25.10 Atherosclerotic heart disease of native coronary artery without angina pectoris (principal); I10 Essential (primary) hypertension; Z12.5 Encounter for screening for malignant neoplasm of prostate
CPT/HCPCS: 36415; 80053; 80061; 84153; 85025; G0103

== ENCOUNTER → 2024-09-19 | Outpatient (CLI) | payer MEDICARE, BC, SELFPAY ==
[2022-05-28 07:36] VITALS: BMI 28.8
[2024-09-19 12:20] LABS: Absolute Lymphocyte Count 1.23 X10^3/uL (0.83-4.51); Absolute Neutrophil Count 3.5 X10^3/uL (2.0-7.7); Basophil# 0.04 X10^3/uL; Basophil% 0.7 % (0-1); Eosinophil# 0.22 X10^3/uL; Eosinophils% 3.9 % (0-5); Hematocrit 36.8 % (40-54); Hemoglobin 12.3 g/dL (13.0-16.5); Lymphocyte # 1.23 X10^3/ul (0.83-4.51); Mean Corp Hgb Conc 33.4 g/dL (32-36); Mean Corpuscular Hgb 31.9 pg (27.0-32.0); Mean Corpuscular Volume 95.3 fL (80-94); Mean Platelet Vol. 10.6 fl (6.2-12.0); Monocyte# 0.63 X10^3/uL; Monocyte% 11.3 % (0-10); NRBC Flagged by Analyzer 0 % (0-5); Neutrophil # 3.46 X10^3/uL (2.7-7.7); Neutrophil % 61.7 % (47-70); Platelet Count 195 K/mm3 (150-450); RBC Distribution Width CV 13.7 % (11.6-14.6); RBC Distribution Width SD 47.7 fl (35.1-43.9); Red Blood Count 3.86 M/mm3 (4.6-6.2); White Blood Count 5.6 K/mm3 (4.4-11.0)
[2024-09-19 12:50] LABS: AST(SGOT) 24 U/L (15-37); Alanine Aminotransfer ALT/SGPT 20 U/L (16-61); Albumin, Serum 3.6 g/dL (3.2-5.0); Alkaline Phosphatase 54 U/L (45-117); Anion Gap 4 (5-15); BUN 21 mg/dL (7-18); BUN/Creat Ratio 18.9 RATIO (10-20); Calcium,Total 8.8 mg/dL (8.5-10.1); Chloride 107 mmol/L (98-107); Cholesterol 117 mg/dL (200); Creatinine, Serum 1.11 mg/dL (0.70-1.30); EST Glomerular Filtration Rate 70 mL/min (>60); Est Glom Filt Rate - Afr Amer 84 mL/min (>60); Globulin 3.7 g/dL (2.2-4.2); Glucose 94 mg/dL (74-106); High Density Lipoprotein 60 mg/dL; PSA,Total - Annual Screen 3.76 ng/mL (0.00-4.00); Potassium 3.9 mmol/L (3.5-5.1); Protein, Total 7.3 g/dL (6.4-8.2); Sodium Level 139 mmol/L (136-145); Triglycerides 68 mg/dL; Very Low Density Lipoprotein 14 mg/dL (5-40)
== END | disposition home or self-care (01) ==
LOC: BFHLAB 09:06
PROVIDERS: PCP Nurse Practitioner Family; Visit Provider Nurse Practitioner Family
DX: I10 Essential (primary) hypertension (principal); E78.5 Hyperlipidemia, unspecified; Z12.5 Encounter for screening for malignant neoplasm of prostate
CPT/HCPCS: 36415; 80053; 80061; 84153; 85025; G0103